=== PATIENT | female | born 1985 | race Caucasian/White ===

== ENCOUNTER 2016-12-17 09:38 | Emergency (ER) | payer OTHER ==
--- NOTE | 2016-12-17 11:46 | ED CLINICAL REPORT ---
Clinical Report - Physicians/Mid Levels Formerly [facility] [address] [place] [address] 12/17/2016 9:38 Patient: KARYN AVALOS Time Seen: 09:46; initial patient contact. Arrived- By private vehicle. Historian- patient. HISTORY OF PRESENT ILLNESS Chief Complaint: ABDOMINAL PAIN. At its maximum, severity described as moderate. When seen in the E.D., severity described as moderate. Modifying factors. Not worsened by anything. Not relieved by anything. No radiation. It is described as located in the right lower quadrant and in the pelvic area. This started yesterday. The patient has had nausea, loss of appetite and vomiting. No diarrhea. Similar symptoms previously: Several times. Recent medical care: The patient was seen recently at another facility in the emergency department. REVIEW OF SYSTEMS No constipation, pain with urination, fever or chills. She has had difficulty with urination. The patient has had urinary frequency. All systems otherwise negative, except as recorded above. PAST HISTORY Vomiting. Abrasion(s). Hemoptysis. Contusion. Substance Abuse. Chest Wall Pain. Otitis Externa. Otitis Media. Back Pain. Muscle Spasm. Myofascial Strain. Cardiovascular Risk Factors. Costochondritis. Atypical Chest Pain. Pelvic Pain. Anal Fissure. Hematuria. Constipation. Chronic Abdominal Pain. Dental Caries. Dyspnea. Bronchitis. Ovarian Cyst. . Anxiety Reaction. Fall. Sprain. Gastroenteritis. Tension-Type Headache. SURGERIES: Dilatation & Curettage. Hysterectomy. Tubal Ligation. SOCIAL HISTORY Current every day smoker. History of drug use: marijuana. No alcohol use. ADDITIONAL NOTES The nursing notes have been reviewed with agreement regarding the chief complaint, PMH and patient medications and allergies. PHYSICAL EXAM Vital Signs: 12/17/2016 09:48 BP: 113/68. HR: 84. RR: 12. O2 saturation: 100%. Temp: 98.2 F. Pain level now: 6/10. Have been reviewed as normal. Appearance: Alert. Oriented X3. No acute distress. Eyes: Eyes normal inspection. ENT: Dry mucous membranes present. CVS: Normal heart rate and rhythm. Heart sounds normal. Respiratory: No respiratory distress. Breath sounds normal. Abdomen: Soft. Mild tenderness in the right side of the abdomen. No guarding, rebound tenderness or Blair's, obturator or psoas sign present. Bowel sounds normal. No organomegaly. No mass. Back: Normal inspection. No CVA tenderness. Skin: Normal skin color. No rash. Extremities: No lower extremity edema. Neuro: Oriented X 3. LABS, X-RAYS, AND EKG Laboratory Tests: UA-Culture if indicated: (KARIN: 12/17/2016 09:50) ( [facility] 12/17/2016 10:16) Final results Test Result Flag Units (Reference) URINE COLOR YELLOW URINE APPEARANCE CLEAR URINE GLUCOSE NEGATIVE (NEGATIVE) URINE BILIRUBIN NEGATIVE (NEGATIVE) URINE KETONE NEGATIVE (NEGATIVE) URINE SPECIFIC GRAVITY <= 1.005 L (1.010-1.030) URINE PH 6.0 (5.0-8.0) URINE PROTEIN NEGATIVE (NEGATIVE) URINE UROBILINOGEN 0.2 EU/dL (0.2-1.0) URINE NITRITE NEGATIVE (NEGATIVE) URINE BLOOD NEGATIVE (NEGATIVE) URINE LEUK ESTERASE NEGATIVE (NEGATIVE) URINE RBC RARE rbc/hpf (0-1) URINE WBC NONE SEEN wbc/hpf (0-1) URINE EPITHELIAL CELLS RARE EPI/hpf (0-5) URINE BACTERIA NONE SEEN (NONE SEEN) URINE COMMENT CULT NOT INDICATED URINE CULTURES ARE SET-UP BASED ON THE FOLLOWING CRITERIA:POSITIVE NITRITEPOSITIVE LEUKOCYTE ESTERASEGREATER THAN 10 WHITE BLOOD CELLSMODERATE (2+) OR GREATER BACTERIA Urine: (KARIN: 12/17/2016 09:50) ( [facility] 12/17/2016 10:19) Final results Test Result Flag Units (Reference) URINE NEGATIVE CBC w Diff: (KARIN: 12/17/2016 10:32) ( [facility] 12/17/2016 10:53) Final results Test Result Flag Units (Reference) WHITE BLOOD COUNT 6.6 K/uL (4.5-11.5) RED BLOOD COUNT 4.55 M/uL (4.00-5.20) HEMOGLOBIN 13.7 gm/dL (12.0-16.0) HEMATOCRIT 40.9 % (36.0-46.0) MEAN CELL VOLUME 90 fL (80-100) MEAN CORPUSCULAR HGB 30 pg (26-34) MEAN CORPUSCULAR HGB CONC 34 g/dL (31-37) RED CELL DISTRIBUTION WIDTH 12.9 % (11.6-14.8) PLATELET COUNT 183 K/uL (150-400) NEUTROPHIL % 68.3 % (50-75) LYMPH % 21.2 L % (25-40) MONO % 8.6 % (3-14) EOSINOPHIL % 1.7 % (0-4) BASOPHIL % 0.2 % (0-2) CMP: (KARIN: 12/17/2016 10:32) ( MsgRcvd 12/17/2016 10:54) Final results Test Result Flag Units (Reference) GLUCOSE 97 mg/dL (70-110) BUN 11 mg/dL (7-18) CREATININE 0.7 mg/dL (0.6-1.3) Estimated GFR >60 mL/min Estimated GFR- >60 mL/min Note: Persistent reduction over 3 months in eGFR<60 mL/min/1.73 m2 defines CKD. Patients with eGFR values>=60 mL/min/1.73 m2 may also have CKD if evidence ofpersistent proteinuria. Additional information may be foundat www.kidney.org. SODIUM 141 mmol/L (136-145) POTASSIUM 3.8 mmol/L (3.5-5.1) CHLORIDE 107 mmol/L (98-107) CARBON DIOXIDE 23 mmol/L (21-32) CALCIUM 8.3 L mg/dL (8.5-10.1) TOTAL PROTEIN 6.6 g/dL (6.4-8.2) ALBUMIN 3.6 g/dL (3.3-5.0) BILIRUBIN, TOTAL 0.3 mg/dL (0.0-1.0) ALKALINE PHOSPHATASE 62 U/L (46-116) AST (SGOT) 21 U/L (15-37) ALT (SGPT) 20 U/L (12-78) LIPASE 117 U/L (73-393) AMYLASE 53 U/L (25-115) . PROGRESS AND PROCEDURES Course of Care: 11:45 12/17/16. Normal lab w/u. Chronic complaints and has been told in the past likely adhesions. Has undergone multiple CT scans, all neg. Has not been evaluated by a surgeon, will refer. Disposition: Discharged home in good and improved condition. Condition: good. CLINICAL IMPRESSION Chronic generalized abdominal pain of unknown cause. INSTRUCTIONS Your Current Medications: CONTINUE TAKING THE FOLLOWING MEDICATIONS: Clindamycin HCl Oral. Prescription Medications: Hydrocodone/APAP 5mg / 325mg: take 1 orally every 6 hours as needed for pain. Dispense ten (10). No refill. Zofran (orally disintegrating tablets) 4 mg: take 1 orally every 6 hours as needed for nausea and vomiting. Dispense ten (10). No refill. Substitution is permissible. Follow-up: Screening today revealed the patient's blood pressure to be in the normal range. Follow-up with: Franklin Subramanian MD, General Surgeon, , [facility], [address] [place] [address] Follow up in about two days. Call for an appointment. (Electronically signed by Nigel Cordero Dr. 12/17/2016 11:48)
--- NOTE | 2016-12-17 11:46 | ED NURSING NOTES ---
Clinical Report - Nurses [facility] [address] [place] [address] 12/17/2016 9:38 Patient: KARYN AVALOS TRIAGE Triage time 09:48. Acuity: LEVEL 3. Chief Complaint: PELVIC PAIN and PAINFUL URINATION. 09:49 12/17/16. 09:48 12/17/16. Alert. No acute distress. ( Pt seen recently at [facility] (yesterday) for abd pain. Pt states she has chronic abd pain.). --09:52 Bola Ford R.N. 09:48 12/17/16. BP: 113/68. HR: 84. RR: 12. O2 saturation: 100% on room air. Temp: 98.2 F. Pain level now: 03/16. --09:52 Bola Ford R.N. Weight: 65.7 kg stated. Height/Length: 66 inches Per Patient. BMI: 23.4. --09:49 Bola Ford R.N. Medications Clindamycin HCl Oral. --09:52 Bola Ford R.N. Medication/allergy information source: the patient. --09:52 Bola Ford R.N. Allergies Penicillins.(rash) Vicodin. --09:52 Bola Ford R.N. History Arrived by private vehicle. Historian: patient. Accompanied by family. 09:49 12/17/16. ( 5 years ago). 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 PAST MEDICAL HX: The patient has had a hysterectomy. SOCIAL HX: Current every day light tobacco smoker (cigarette)- less than 1/2 a pack per day. History of drug use: marijuana. Recently used drugs yesterday. No alcohol use. No infectious disease exposure. FALL RISK ASSESSMENT: Fall risk assessment completed. No fall risk identified. NUTRITIONAL RISK ASSESSMENT: The nutritional risk assessment revealed no deficiencies. FUNCTIONAL ASSESSMENT: Functional assessment: no impairments noted. LEARNING NEEDS ASSESSMENT: The learning needs assessment revealed no barriers. SKIN INTEGRITY ASSESSMENT: Skin integrity risk assessment completed. No skin integrity risk identified. --09:52 Bola Ford R.N. PROBLEMS: Vomiting. Abrasion(s). Hemoptysis. Contusion. Substance Abuse. Chest Wall Pain. Otitis Externa. Otitis Media. Back Pain. Muscle Spasm. Myofascial Strain. Cardiovascular Risk Factors. Costochondritis. Atypical Chest Pain. Pelvic Pain. Anal Fissure. Hematuria. Constipation. Abdominal Pain. Dental Caries. Dyspnea. Bronchitis. Ovarian Cyst. . Anxiety Reaction. Fall. Sprain. Tetanus Status. Immunizations. Gastroenteritis. Tension-Type Headache. LNMP - Last Normal Menstrual Period. --09:52 Bola Ford R.N. ADDITIONAL SURGERIES: Dilatation & Curettage. Hysterectomy. Tubal Ligation. --09:52 Bola Ford R.N. Assessment 09:49 12/17/16. --09:52 Bola Ford R.N. Interventions 09:48 12/17/16. 09:49 12/17/16. ID and allergy band on patient. To treatment room. --09:52 Bola Ford R.N. PHYSICAL ASSESSMENT 09:53 12/17/16. GENERAL / NEURO / PSYCH: Alert. Oriented X 4. RESPIRATORY: Respirations not labored. CVS: Capillary refill less than 2 seconds. GI / : Last BM was MOPPER. SKIN: Skin is warm and dry. --09:53 Bola Ford R.N. NURSING PROGRESS NOTES 09:53 12/17/16. The plan of care for this patient has been created. Patient gowned. Head of bed elevated. Reassurance given. Two patient identifiers checked. Call light placed in reach. Side rails up x 2. Bed placed in lowest position. Brakes of bed on. Brakes of chair on. --09:53 Bola Ford R.N. 09:53 12/17/16. Patient ready for evaluation- chart flagged and notification provided. --09:53 Bola Ford R.N. 09:54 12/17/16. Patient ID band checked for patient name and birthdate urine collected with return of yellow-colored urine; sample sent to lab for urinalysis and culture. Specimen labeled in the presence of the patient. --09:54 Bola Ford R.N. 10:12/17/16. Care transferred and report given (Jina MORENO). --10: Bola Ford R.N. 10:19 12/17/2016 Site #1 started via IV in the right antecubital space with an 20g angiocath; one attempt. Blood drawn: rainbow set. Labeled in the presence of the patient. --10:29 Jina Covington R.N. 10:12/17/2016 Started bag #1 1000 mL IV Fluids IV NS (Saline); at 1000 mL/hr over 1 hour(s) via site #1 via dial-a-flow. Allergies verified and confirmed 5 rights. IV patency established. IV site checked: no pain, redness, or swelling. IV flushed thoroughly pre- and post-medication administration. --10: Jina Covington R.N. 10:12/17/2016 Toradol IVP 30 mg given over 1 minute(s) via site #1. Allergies verified and confirmed 5 rights. IV patency established. IV site checked: no pain, redness, or swelling. IV flushed thoroughly pre- and post-medication administration. IVP given by RN. --10: Jina Covington R.N. 10:12/17/2016 Zofran (Ondansetron HCl) IVP 4 mg given over 2 minute(s) via site #1. Allergies verified and confirmed 5 rights. IV patency established. IV site checked: no pain, redness, or swelling. IV flushed thoroughly pre- and post-medication administration. IVP given by RN. --10:29 Jina Covington R.N. Patient ID band checked for patient name, birthdate and medical record number: patient confirmed. Blood samples drawn by nurse per protocol ; labeled in presence of the patient and sent to lab. Reassurance given. Two patient identifiers checked. Call light placed in reach. --10:30 Jina Covington R.N. 11:07 12/17/16. BP: 102/53 (regular adult cuff) taken on the left arm, via an automated monitor, while lying. HR: 87 (regular). RR: 15. O2 saturation: 100% on room air. Pain level now: 11/16. --11:08 Jina Covington R.N. Reassurance given. Reassessment after fluids administered. She has had no adverse reaction. Overall patient status is improved- she states feels better. --11: Jina Covington R.N. 11:12/17/2016 IV Fluids IV NS Discontinued: bag #1 completed. Total amount infused: 1000 mL. IV patency established. IV site checked: no pain, redness, or swelling. IV flushed thoroughly. --11: Jina Covington R.N. 11:12/17/2016 Toradol IVP Response: no adverse reaction symptoms have improved the patient feels better. --11: Jina Covington R.N. 11:12/17/2016 Zofran IVP Response: no adverse reaction pain is gone now. Symptoms have improved the patient feels better. --11: Jina Covington R.N. DISPOSITION / DISCHARGE 11:12/17/2016 Site #1 removed upon discharge. Catheter intact. Manual pressure and bandaid applied. --11:55 Jina Covington R.N. Departure time: 1159 PM. Condition at departure: improved and stable. The goals identified in the patient's plan of care were met. No learning barriers present. Discharge instructions provided and reviewed with the patient. Reviewed medication(s) side effects, precautions, dosing and course information. Prescription(s) given to the patient (Vicodin and Zofran). Reviewed referral to a surgeon for followup. Patient verbalized understanding. Written instructions provided in Bulgarian. ( All concerns addressed to patients satisfaction). The patient was discharged by the physician. She was discharged home and unaccompanied at time of discharge. She left the Emergency Department ambulatory and via private vehicle. Patient driving. FALL RISK ASSESSMENT: Fall risk assessment completed. No fall risk identified. GRICEL COMA SCORE: Gricel Coma Scale: 15- eyes open spontaneously (4); best verbal response- oriented x 4 (5); best motor response- obeys commands (6). --11:57 Jina Covington R.N. 11:55 12/17/16. BP: 101/59. HR: 87. RR: 16. O2 saturation: 100%. Temp: 98.1 F (oral). Pain level now: 11/16. --11:57 Jina Covington R.N. Locked/Released at 12/17/2016 11:58 by Jina Covington R.N.
--- NOTE | 2016-12-17 11:46 | ED NURSING NOTES ---
Clinical Report - Nurses [facility] [address] [place] [address] 12/17/2016 9:38 Patient: KARYN AVALOS TRIAGE Triage time 09:48. Acuity: LEVEL 3. Chief Complaint: PELVIC PAIN and PAINFUL URINATION. 09:49 12/17/16. 09:48 12/17/16. Alert. No acute distress. ( Pt seen recently at [facility] (yesterday) for abd pain. Pt states she has chronic abd pain.). --09:52 Bola Ford R.N. 09:48 12/17/16. BP: 113/68. HR: 84. RR: 12. O2 saturation: 100% on room air. Temp: 98.2 F. Pain level now: 03/16. --09:52 Bola Ford R.N. Weight: 65.7 kg stated. Height/Length: 66 inches Per Patient. BMI: 23.4. --09:49 Bola Ford R.N. Medications Clindamycin HCl Oral. --09:52 Bola Ford R.N. Medication/allergy information source: the patient. --09:52 Bola Ford R.N. Allergies Penicillins.(rash) Vicodin. --09:52 Bola Ford R.N. History Arrived by private vehicle. Historian: patient. Accompanied by family. 09:49 12/17/16. ( 5 years ago). 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 PAST MEDICAL HX: The patient has had a hysterectomy. SOCIAL HX: Current every day light tobacco smoker (cigarette)- less than 1/2 a pack per day. History of drug use: marijuana. Recently used drugs yesterday. No alcohol use. No infectious disease exposure. FALL RISK ASSESSMENT: Fall risk assessment completed. No fall risk identified. NUTRITIONAL RISK ASSESSMENT: The nutritional risk assessment revealed no deficiencies. FUNCTIONAL ASSESSMENT: Functional assessment: no impairments noted. LEARNING NEEDS ASSESSMENT: The learning needs assessment revealed no barriers. SKIN INTEGRITY ASSESSMENT: Skin integrity risk assessment completed. No skin integrity risk identified. --09:52 Bola Ford R.N. PROBLEMS: Vomiting. Abrasion(s). Hemoptysis. Contusion. Substance Abuse. Chest Wall Pain. Otitis Externa. Otitis Media. Back Pain. Muscle Spasm. Myofascial Strain. Cardiovascular Risk Factors. Costochondritis. Atypical Chest Pain. Pelvic Pain. Anal Fissure. Hematuria. Constipation. Abdominal Pain. Dental Caries. Dyspnea. Bronchitis. Ovarian Cyst. . Anxiety Reaction. Fall. Sprain. Tetanus Status. Immunizations. Gastroenteritis. Tension-Type Headache. LNMP - Last Normal Menstrual Period. --09:52 Bola Ford R.N. ADDITIONAL SURGERIES: Dilatation & Curettage. Hysterectomy. Tubal Ligation. --09:52 Bola Ford R.N. Assessment 09:49 12/17/16. --09:52 Bola Ford R.N. Interventions 09:48 12/17/16. 09:49 12/17/16. ID and allergy band on patient. To treatment room. --09:52 Bola Ford R.N. PHYSICAL ASSESSMENT 09:53 12/17/16. GENERAL / NEURO / PSYCH: Alert. Oriented X 4. RESPIRATORY: Respirations not labored. CVS: Capillary refill less than 2 seconds. 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 SKIN: Skin is warm and dry. --09:53 Bola Ford R.N. NURSING PROGRESS NOTES 09:53 12/17/16. The plan of care for this patient has been created. Patient gowned. Head of bed elevated. Reassurance given. Two patient identifiers checked. Call light placed in reach. Side rails up x 2. Bed placed in lowest position. Brakes of bed on. Brakes of chair on. --09:53 Bola Ford R.N. 09:53 12/17/16. Patient ready for evaluation- chart flagged and notification provided. --09:53 Bola Ford R.N. 09:54 12/17/16. Patient ID band checked for patient name and birthdate urine collected with return of yellow-colored urine; sample sent to lab for urinalysis and culture. Specimen labeled in the presence of the patient. --09:54 Bola Ford R.N. 10:12/17/16. Care transferred and report given (Jina MORENO). --10: Bola Ford R.N. 10:19 12/17/2016 Site #1 started via IV in the right antecubital space with an 20g angiocath; one attempt. Blood drawn: rainbow set. Labeled in the presence of the patient. --10:29 Jina Covington R.N. 10:12/17/2016 Started bag #1 1000 mL IV Fluids IV NS (Saline); at 1000 mL/hr over 1 hour(s) via site #1 via dial-a-flow. Allergies verified and confirmed 5 rights. IV patency established. IV site checked: no pain, redness, or swelling. IV flushed thoroughly pre- and post-medication administration. --10: Jina Covington R.N. 10:12/17/2016 Toradol IVP 30 mg given over 1 minute(s) via site #1. Allergies verified and confirmed 5 rights. IV patency established. IV site checked: no pain, redness, or swelling. IV flushed thoroughly pre- and post-medication administration. IVP given by RN. --10: Jina Covington R.N. 10:12/17/2016 Zofran (Ondansetron HCl) IVP 4 mg given over 2 minute(s) via site #1. Allergies verified and confirmed 5 rights. IV patency established. IV site checked: no pain, redness, or swelling. IV flushed thoroughly pre- and post-medication administration. IVP given by RN. --10:29 Jina Covington R.N. Patient ID band checked for patient name, birthdate and medical record number: patient confirmed. Blood samples drawn by nurse per protocol ; labeled in presence of the patient and sent to lab. Reassurance given. Two patient identifiers checked. Call light placed in reach. --10:30 Jina Covington R.N. 11:07 12/17/16. BP: 102/53 (regular adult cuff) taken on the left arm, via an automated monitor, while lying. HR: 87 (regular). RR: 15. O2 saturation: 100% on room air. Pain level now: 11/16. --11:08 Jina Covington R.N. Reassurance given. Reassessment after fluids administered. She has had no adverse reaction. Overall patient status is improved- she states feels better. --11: Jina Covington R.N. 11:12/17/2016 IV Fluids IV NS Discontinued: bag #1 completed. Total amount infused: 1000 mL. IV patency established. IV site checked: no pain, redness, or swelling. IV flushed thoroughly. --11: Jina Covington R.N. 11:12/17/2016 Toradol IVP Response: no adverse reaction symptoms have improved the patient feels better. --11: Jina Covington R.N. 11:12/17/2016 Zofran IVP Response: no adverse reaction pain is gone now. Symptoms have improved the patient feels better. --11: Jina Covington R.N. DISPOSITION / DISCHARGE 11:12/17/2016 Site #1 removed upon discharge. Catheter intact. Manual pressure and bandaid applied. --11:55 Jina Covington R.N. Departure time: 1159 PM. Condition at departure: improved and stable. The goals identified in the patient's plan of care were met. No learning barriers present. Discharge instructions provided and reviewed with the patient. Reviewed medication(s) side effects, precautions, dosing and course information. Prescription(s) given to the patient (Vicodin and Zofran). Reviewed referral to a surgeon for followup. Patient verbalized understanding. Written instructions provided in Tongan. ( All concerns addressed to patients satisfaction). The patient was discharged by the physician. She was discharged home and unaccompanied at time of discharge. She left the Emergency Department ambulatory and via private vehicle. Patient driving. FALL RISK ASSESSMENT: Fall risk assessment completed. No fall risk identified. GRICEL COMA SCORE: Gricel Coma Scale: 15- eyes open spontaneously (4); best verbal response- oriented x 4 (5); best motor response- obeys commands (6). --11:57 Jina Covington R.N. 11:55 12/17/16. BP: 101/59. HR: 87. RR: 16. O2 saturation: 100%. Temp: 98.1 F (oral). Pain level now: 11/16. --11:57 Jina Covington R.N. Locked/Released at 12/17/2016 11:58 by Jina Covington R.N.
--- NOTE | 2016-12-17 11:46 | ED CLINICAL REPORT ---
Clinical Report - Physicians/Mid Levels [facility] [address] [place] [address] 12/17/2016 9:38 Patient: KARYN AVALOS Time Seen: 09:46; initial patient contact. Arrived- By private vehicle. Historian- patient. HISTORY OF PRESENT ILLNESS Chief Complaint: ABDOMINAL PAIN. At its maximum, severity described as moderate. When seen in the E.D., severity described as moderate. Modifying factors. Not worsened by anything. Not relieved by anything. No radiation. It is described as located in the right lower quadrant and in the pelvic area. This started yesterday. The patient has had nausea, loss of appetite and vomiting. No diarrhea. Similar symptoms previously: Several times. Recent medical care: The patient was seen recently at another facility in the emergency department. REVIEW OF SYSTEMS No constipation, pain with urination, fever or chills. She has had difficulty with urination. The patient has had urinary frequency. All systems otherwise negative, except as recorded above. PAST HISTORY Vomiting. Abrasion(s). Hemoptysis. Contusion. Substance Abuse. Chest Wall Pain. Otitis Externa. Otitis Media. Back Pain. Muscle Spasm. Myofascial Strain. Cardiovascular Risk Factors. Costochondritis. Atypical Chest Pain. Pelvic Pain. Anal Fissure. Hematuria. Constipation. Chronic Abdominal Pain. Dental Caries. Dyspnea. Bronchitis. Ovarian Cyst. . Anxiety Reaction. Fall. Sprain. Gastroenteritis. Tension-Type Headache. SURGERIES: Dilatation & Curettage. Hysterectomy. Tubal Ligation. SOCIAL HISTORY Current every day smoker. History of drug use: marijuana. No alcohol use. ADDITIONAL NOTES The nursing notes have been reviewed with agreement regarding the chief complaint, PMH and patient medications and allergies. PHYSICAL EXAM Vital Signs: 12/17/2016 09:48 BP: 113/68. HR: 84. RR: 12. O2 saturation: 100%. Temp: 98.2 F. Pain level now: 6/10. Have been reviewed as normal. Appearance: Alert. Oriented X3. No acute distress. Eyes: Eyes normal inspection. ENT: Dry mucous membranes present. CVS: Normal heart rate and rhythm. Heart sounds normal. Respiratory: No respiratory distress. Breath sounds normal. Abdomen: Soft. Mild tenderness in the right side of the abdomen. No guarding, rebound tenderness or Blair's, obturator or psoas sign present. Bowel sounds normal. No organomegaly. No mass. Back: Normal inspection. No CVA tenderness. Skin: Normal skin color. No rash. Extremities: No lower extremity edema. Neuro: Oriented X 3. LABS, X-RAYS, AND EKG Laboratory Tests: UA-Culture if indicated: (KARIN: 12/17/2016 09:50) ( [facility] 12/17/2016 10:16) Final results Test Result Flag Units (Reference) URINE COLOR YELLOW URINE APPEARANCE CLEAR URINE GLUCOSE NEGATIVE (NEGATIVE) URINE BILIRUBIN NEGATIVE (NEGATIVE) URINE KETONE NEGATIVE (NEGATIVE) URINE SPECIFIC GRAVITY <= 1.005 L (1.010-1.030) URINE PH 6.0 (5.0-8.0) URINE PROTEIN NEGATIVE (NEGATIVE) URINE UROBILINOGEN 0.2 EU/dL (0.2-1.0) URINE NITRITE NEGATIVE (NEGATIVE) URINE BLOOD NEGATIVE (NEGATIVE) URINE LEUK ESTERASE NEGATIVE (NEGATIVE) URINE RBC RARE rbc/hpf (0-1) URINE WBC NONE SEEN wbc/hpf (0-1) URINE EPITHELIAL CELLS RARE EPI/hpf (0-5) URINE BACTERIA NONE SEEN (NONE SEEN) URINE COMMENT CULT NOT INDICATED URINE CULTURES ARE SET-UP BASED ON THE FOLLOWING CRITERIA:POSITIVE NITRITEPOSITIVE LEUKOCYTE ESTERASEGREATER THAN 10 WHITE BLOOD CELLSMODERATE (2+) OR GREATER BACTERIA Urine: (KARIN: 12/17/2016 09:50) ( [facility] 12/17/2016 10:19) Final results Test Result Flag Units (Reference) URINE NEGATIVE CBC w Diff: (KARIN: 12/17/2016 10:32) ( [facility] 12/17/2016 10:53) Final results Test Result Flag Units (Reference) WHITE BLOOD COUNT 6.6 K/uL (4.5-11.5) RED BLOOD COUNT 4.55 M/uL (4.00-5.20) HEMOGLOBIN 13.7 gm/dL (12.0-16.0) HEMATOCRIT 40.9 % (36.0-46.0) MEAN CELL VOLUME 90 fL (80-100) MEAN CORPUSCULAR HGB 30 pg (26-34) MEAN CORPUSCULAR HGB CONC 34 g/dL (31-37) RED CELL DISTRIBUTION WIDTH 12.9 % (11.6-14.8) PLATELET COUNT 183 K/uL (150-400) NEUTROPHIL % 68.3 % (50-75) LYMPH % 21.2 L % (25-40) MONO % 8.6 % (3-14) EOSINOPHIL % 1.7 % (0-4) BASOPHIL % 0.2 % (0-2) CMP: (KARIN: 12/17/2016 10:32) ( MsgRcvd 12/17/2016 10:54) Final results Test Result Flag Units (Reference) GLUCOSE 97 mg/dL (70-110) BUN 11 mg/dL (7-18) CREATININE 0.7 mg/dL (0.6-1.3) Estimated GFR >60 mL/min Estimated GFR- >60 mL/min Note: Persistent reduction over 3 months in eGFR<60 mL/min/1.73 m2 defines CKD. Patients with eGFR values>=60 mL/min/1.73 m2 may also have CKD if evidence ofpersistent proteinuria. Additional information may be foundat www.kidney.org. SODIUM 141 mmol/L (136-145) POTASSIUM 3.8 mmol/L (3.5-5.1) CHLORIDE 107 mmol/L (98-107) CARBON DIOXIDE 23 mmol/L (21-32) CALCIUM 8.3 L mg/dL (8.5-10.1) TOTAL PROTEIN 6.6 g/dL (6.4-8.2) ALBUMIN 3.6 g/dL (3.3-5.0) BILIRUBIN, TOTAL 0.3 mg/dL (0.0-1.0) ALKALINE PHOSPHATASE 62 U/L (46-116) AST (SGOT) 21 U/L (15-37) ALT (SGPT) 20 U/L (12-78) LIPASE 117 U/L (73-393) AMYLASE 53 U/L (25-115) . PROGRESS AND PROCEDURES Course of Care: 11:45 12/17/16. Normal lab w/u. Chronic complaints and has been told in the past likely adhesions. Has undergone multiple CT scans, all neg. Has not been evaluated by a surgeon, will refer. Disposition: Discharged home in good and improved condition. Condition: good. CLINICAL IMPRESSION Chronic generalized abdominal pain of unknown cause. INSTRUCTIONS Your Current Medications: CONTINUE TAKING THE FOLLOWING MEDICATIONS: Clindamycin HCl Oral. Prescription Medications: Hydrocodone/APAP 5mg / 325mg: take 1 orally every 6 hours as needed for pain. Dispense ten (10). No refill. Zofran (orally disintegrating tablets) 4 mg: take 1 orally every 6 hours as needed for nausea and vomiting. Dispense ten (10). No refill. Substitution is permissible. Follow-up: Screening today revealed the patient's blood pressure to be in the normal range. Follow-up with: Franklin Subramanian MD, General Surgeon, , [facility], [address] [place] [address] Follow up in about two days. Call for an appointment. (Electronically signed by Nigel Cordero Dr. 12/17/2016 11:48)
--- NOTE | 2016-12-17 11:46 | ED ORDER SUMMARY ---
..... Patient: KARYN AVALOS OrderSheet [facility] VisitID: [id number] [address] [place] [address] 31y, F Registration Date/Time: 12/17/2016 ORDER SHEET Weight: 65.7 kg (stated) Allergies: Penicillins, Vicodin GENERAL ORDERS: UA-Culture if indicated Urgent (09:53 12/17/2016 Francisco Greenfield.NRamon per protocol) (Ack 10:04 Tobias) (10:14 Bill R.N.) CBC w Diff Urgent (10:12/17/2016 Juan David Vaughn) (Ack 10:08 Tobias) (10:14 Bill R.N.) CMP Urgent (10:12/17/2016 Juan David Vaughn) (Ack 10:08 Tobias) (10:14 Bill R.N.) Amylase Urgent (10:12/17/2016 Juan David Vaughn) (Ack 10:08 Tobias) (10:14 Bill R.N.) Lipase Urgent (10:12/17/2016 Juan David Vaughn) (Ack 10:08 Tobias) (10:14 Bill R.N.) Urine Urgent (10:12/17/2016 Juan David Vaughn) (Ack 10:08 Tobias) (10:14 Bill R.N.) MEDICATION ORDERS: IV FLUIDS: IV NS : initial bolus none -, then 1000 mL/hr for X1 (NOW) (10:12/17/2016 Juan David Vaughn) (10:29 Bill R.N.) Toradol IV 30 mg (NOW) (10:12/17/2016 Juan David Vaughn) (10:29 Bill R.N.) Zofran IV 4 mg (NOW) (10:12/17/2016 Juan David Vaughn) (10:29 Bill R.N.) ORDER SHEET NOTES: [Electronically signed by Nigel Cordero Dr. (11:48 12/17/2016)] [Electronically signed by Jina Covington R.N. (11:58 12/17/2016)] [Electronically locked/signed by Jina Covington R.N. (11:58 12/17/2016)]
--- NOTE | 2016-12-17 11:46 | ED ORDER SUMMARY ---
..... Patient: KARYN AVALOS OrderSheet [facility] VisitID: [id number] [address] [place] [address] 31y, F Registration Date/Time: 12/17/2016 ORDER SHEET Weight: 65.7 kg (stated) Allergies: Penicillins, Vicodin GENERAL ORDERS: UA-Culture if indicated Urgent (09:53 12/17/2016 Francisco Greenfield.NRamon per protocol) (Ack 10:04 Tobias) (10:14 Bill R.N.) CBC w Diff Urgent (10:12/17/2016 Juan David Vaughn) (Ack 10:08 Tobias) (10:14 Bill R.N.) CMP Urgent (10:12/17/2016 Juan David Vaughn) (Ack 10:08 Tobias) (10:14 Bill R.N.) Amylase Urgent (10:12/17/2016 Juan David Vaughn) (Ack 10:08 Tobias) (10:14 Bill R.N.) Lipase Urgent (10:12/17/2016 Juan David Vaughn) (Ack 10:08 Tobias) (10:14 Bill R.N.) Urine Urgent (10:12/17/2016 Juan David Vaughn) (Ack 10:08 Tobias) (10:14 Bill R.N.) MEDICATION ORDERS: IV FLUIDS: IV NS : initial bolus none -, then 1000 mL/hr for X1 (NOW) (10:12/17/2016 Juan David Vaughn) (10:29 Bill R.N.) Toradol IV 30 mg (NOW) (10:12/17/2016 Juan David Vaughn) (10:29 Bill R.N.) Zofran IV 4 mg (NOW) (10:12/17/2016 Juan David Vaughn) (10:29 Bill R.N.) ORDER SHEET NOTES: [Electronically signed by Nigel Cordero Dr. (11:48 12/17/2016)] [Electronically signed by Jina Covington R.N. (11:58 12/17/2016)] [Electronically locked/signed by Jina Covington R.N. (11:58 12/17/2016)]
--- NOTE | 2016-12-17 11:58 | ED DISCHARGE INSTRUCTIONS ---
Patient: KARYN AVALOS General Instructions [facility] VisitID: [id number] [address] [place], [place] [id number] 31y, F Registration Date/Time: 12/17/2016 Chronic generalized abdominal pain of unknown cause. INSTRUCTIONS Your Current Medications: CONTINUE TAKING THE FOLLOWING MEDICATIONS: Clindamycin HCl Oral. Prescription Medications: Hydrocodone/APAP 5mg / 325mg: take 1 orally every 6 hours as needed for pain. Dispense ten (10). No refill. Zofran (orally disintegrating tablets) 4 mg: take 1 orally every 6 hours as needed for nausea and vomiting. Dispense ten (10). No refill. Substitution is permissible. Follow-up: Screening today revealed the patient's blood pressure to be in the normal range. Follow-up with: Franklin Subramanian MD, General Surgeon, , [facility], [address] [place] [address] Follow up in about two days. Call for an appointment. ADDITIONAL INFORMATION Abdominal Pain, Unknown Cause (Female) The exact cause of your abdominal (stomach) pain is not certain. This does not mean that this is something to worry about, or the right tests were not done. Everyone likes to know the exact cause of the problem, but sometimes with abdominal pain, there is no clear-cut cause, and this could be a good thing. The good news is that your symptoms can be treated, and you will feel better. Your condition does not seem serious now; however, sometimes the signs of a serious problem may take more time to appear. For this reason,it is important for you to watch for any new symptoms, problems,or worsening of your condition. Over the next few days, the abdominal pain may come and go, or be continuous. Other common symptoms can include nausea and vomiting. Sometimes it can be difficult to tell if you feel nauseous, you may just feel bad and not associate that feeling with nausea. Constipation, diarrhea, and a fever may go along with the pain. The pain may continue even if treated correctly over the following days. Depending on how things go, sometimes the cause can become clear and may require further or different treatment. Additional evaluations, medications, or tests may be needed. Home care Your health care provider may prescribe medications for pain, symptoms, or an infection. Follow the health care provider's instructions for taking these medications. General care Rest until your next exam. No strenuous activities. Try to find positions that ease discomfort. A small pillow placed on the abdomen may help relieve pain. Something warm on your abdomen (such as a heating pad) may help, but be careful not to burn yourself. Diet Do not force yourself to eat, especially if having cramps, vomiting, or diarrhea. Water is important so you do not get dehydrated. Soup may also be good. Sports drinks may also help, especially if they are not too acidic. Make sure you don't drink sugary drinks as this can make things worse. Take liquids in small amounts. Do not guzzle them. Caffeine sometimes makes the pain and cramping worse. Avoid dairy products if you have vomiting or diarrhea. Don't eat large amounts at a time. Wait a few minutes between bites. Eat a diet low in fiber (called a low-residue diet). Foods allowed include refined breads, white rice, fruit and vegetable juices without pulp, tender meats. These foods will pass more easily through the intestine. Avoid whole-grain foods, whole fruits and vegetables, meats, seeds and nuts, fried or fatty foods, dairy, alcohol and spicy foods until your symptoms go away. Follow-up care Follow up with your health care provider as instructed, or if your pain does not begin to improve in the next 24 hours. When to seek medical care Seek prompt medical care if any of the following occur: Pain gets worse or moves to the right lower abdomen New or worsening vomiting or diarrhea Swelling of the abdomen Unable to pass stool for more than three days Fever of 100.4F (38C) or higher, or as directed by your healthcare provider. Blood in vomit or bowel movements (dark red or black color) Jaundice (yellow color of eyes and skin) Weakness, dizziness Chest, arm, back, neck or jaw pain Unexpected vaginal bleeding or missed period Call 911 Call emergency services if any of the following occur: Trouble breathing Confusion Fainting or loss of consciousness Rapid heart rate Seizure Hydrocodone Bitartrate, Acetaminophen Oral tablet What is this medicine? ACETAMINOPHEN; HYDROCODONE (a set a RIDDHI jordin fen; onur droe KOE done) is a pain reliever. It is used to treat mild to moderate pain. How should I use this medicine? Take this medicine by mouth. Swallow it with a full glass of water. Follow the directions on the prescription label. If the medicine upsets your stomach, take the medicine with food or milk. Do not take more than you are told to take. Talk to your catalyst impregnator regarding the use of this medicine in children. This medicine is not approved for use in children. What side effects may I notice from receiving this medicine? Side effects that you should report to your doctor or health lead caregiver as soon as possible: allergic reactions like skin rash, itching or hives, swelling of the face, lips, or tongue breathing problems confusion feeling faint or lightheaded, falls stomach pain yellowing of the eyes or skin Side effects that usually do not require medical attention (report to your doctor or health lead caregiver if they continue or are bothersome): nausea, vomiting stomach upset What may interact with this medicine? alcohol antihistamines isoniazid medicines for depression, anxiety, or psychotic disturbances medicines for sleep muscle relaxants naltrexone narcotic medicines (opiates) for pain phenobarbital ritonavir tramadol What if I miss a dose? If you miss a dose, take it as soon as you can. If it is almost time for your next dose, take only that dose. Do not take double or extra doses. Where should I keep my medicine? Keep out of the reach of children. This medicine can be abused. Keep your medicine in a safe place to protect it from theft. Do not share this medicine with anyone. Selling or giving away this medicine is dangerous and against the law. Store at room temperature between 15 and 30 degrees C (59 and 86 degrees F). Protect from light. Keep container tightly closed. Throw away any unused medicine after the expiration date. Discard unused medicine and used packaging carefully. Pets and children can be harmed if they find used or lost packages. What should I tell my health care provider before I take this medicine? They need to know if you have any of these conditions: brain tumor Crohn's disease, inflammatory bowel disease, or ulcerative colitis drink more than 3 alcohol-containing drinks per day drug abuse or addiction head injury heart or circulation problems kidney disease or problems going to the bathroom liver disease lung disease, asthma, or breathing problems an unusual or allergic reaction to acetaminophen, hydrocodone, other opioid analgesics, other medicines, foods, dyes, or preservatives or trying to get breast-feeding What should I watch for while using this medicine? Tell your doctor or health lead caregiver if your pain does not go away, if it gets worse, or if you have new or a different type of pain. You may develop tolerance to the medicine. Tolerance means that you will need a higher dose of the medicine for pain relief. Tolerance is normal and is expected if you take the medicine for a long time. Do not suddenly stop taking your medicine because you may develop a severe reaction. Your body becomes used to the medicine. This does NOT mean you are addicted. Addiction is a behavior related to getting and using a drug for a non-medical reason. If you have pain, you have a medical reason to take pain medicine. Your doctor will tell you how much medicine to take. If your doctor wants you to stop the medicine, the dose will be slowly lowered over time to avoid any side effects. You may get drowsy or dizzy when you first start taking the medicine or change doses. Do not drive, use machinery, or do anything that may be dangerous until you know how the medicine affects you. Stand or sit up slowly. There are different types of narcotic medicines (opiates) for pain. If you take more than one type at the same time, you may have more side effects. Give your health care provider a list of all medicines you use. Your doctor will tell you how much medicine to take. Do not take more medicine than directed. Call emergency for help if you have problems breathing. The medicine will cause constipation. Try to have a bowel movement at least every 2 to 3 days. If you do not have a bowel movement for 3 days, call your doctor or health lead caregiver. Too much acetaminophen can be very dangerous. Do not take Tylenol (acetaminophen) or medicines that contain acetaminophen with this medicine. Many non-prescription medicines contain acetaminophen. Always read the labels carefully. Ondansetron Oral disintegrating tablet What is this medicine? ONDANSETRON (on NORMA se eagle) is used to treat nausea and vomiting caused by chemotherapy. It is also used to prevent or treat nausea and vomiting after surgery. How should I use this medicine? These tablets are made to dissolve in the mouth. Do not try to push the tablet through the foil backing. With dry hands, peel away the foil backing and gently remove the tablet. Place the tablet in the mouth and allow it to dissolve, then swallow. While you may take these tablets with water, it is not necessary to do so. Talk to your catalyst impregnator regarding the use of this medicine in children. Special care may be needed. What side effects may I notice from receiving this medicine? Side effects that you should report to your doctor or health lead caregiver as soon as possible: allergic reactions like skin rash, itching or hives, swelling of the face, lips, or tongue breathing problems dizziness fast or irregular heartbeat feeling faint or lightheaded, falls fever and chills swelling of the hands and feet tightness in the chest Side effects that usually do not require medical attention (report to your doctor or health lead caregiver if they continue or are bothersome): constipation or diarrhea headache What may interact with this medicine? Do not take this medicine with any of the following medications: -apomorphine -cisapride -dofetilide -dronedarone -pimozide -thioridazine -ziprasidone This medicine may also interact with the following medications: -carbamazepine -phenytoin -rifampicin -tramadol -other medicines that prolong the QT interval (cause an abnormal heart rhythm) What if I miss a dose? If you miss a dose, take it as soon as you can. If it is almost time for your next dose, take only that dose. Do not take double or extra doses. Where should I keep my medicine? Keep out of the reach of children. Store between 2 and 30 degrees C (36 and 86 degrees F). Throw away any unused medicine after the expiration date. What should I tell my health care provider before I take this medicine? They need to know if you have any of these conditions: heart disease history of irregular heartbeat liver disease low levels of magnesium or potassium in the blood an unusual or allergic reaction to ondansetron, granisetron, other medicines, foods, dyes, or preservatives or trying to get breast-feeding What should I watch for while using this medicine? Check with your doctor or health lead caregiver as soon as you can if you have any sign of an allergic reaction. You have been given the following additional information: Abdominal Pain, Unknown Cause, (Female) Hydrocodone Bitartrate, Acetaminophen Oral tablet Ondansetron Oral disintegrating tablet (Electronically signed by Nigel Cordero Dr. 12/17/2016 11:48)
--- NOTE | 2016-12-17 11:58 | ED MAR SUMMARY ---
..... Medication Administration Record [facility] [address] [place] [address] Patient: KARYN AVALOS Visit ID: [id number] 31y, F Weight: 65.7 kg Height/Length: 66 in BMI: 23.4 ALLERGIES: Penicillins, Vicodin Start 10:12/17/2016 Jina Covington R.N., Stop 11:12/17/2016 Jina Covington R.N. Medication Administered: IV NS (SALINE), Dose: IV Fluids over 1 hour(s), Rate: 1000 mL/hr, Dispensed: 1000 mL bag, Site: #1 right AC. Medication Ordered: IV NS : initial bolus none -, then 1000 mL/hr for X1 (NOW). Given 10:12/17/2016 Jina Covington R.N. Medication Administered: TORADOL [IVP], Dose: 30 mg IVP over 1 minute(s), Site: #1 right AC. Medication Ordered: Toradol IV 30 mg (NOW). Given 10:12/17/2016 Jina Covington R.NRamon Medication Administered: ZOFRAN [IVP] (ONDANSETRON HCL), Dose: 4 mg IVP over 2 minute(s), Site: #1 right AC. Medication Ordered: Zofran IV 4 mg (NOW).
--- NOTE | 2016-12-17 11:58 | ED MED RECONCILIATION SUMMARY ---
Patient: KARYN AVALOS Medication Reconciliation Report [facility] VisitID: [id number] [address] [place] [address] 31y, F Registration Date/Time: 12/17/2016 Weight: 65.7 kg Height/Length: 66 in. BMI: 23.4 ALLERGIES: Penicillins, Vicodin The patient's Home Medications are listed below: CONTINUE TAKING THE FOLLOWING MEDICATIONS: Clindamycin HCl Oral The source(s) of the original Home Medication information: patient The following Medications were given to the patient in the Emergency Department: IV NS IV Fluids bolus 0, then 1000 mL/hr, administered: 12/17/2016 10:29:00 AM Toradol [IVP] IVP 30 mg, administered: 12/17/2016 10:29:00 AM Zofran [IVP] IVP 4 mg, administered: 12/17/2016 10:29:00 AM The following Medications were prescribed to the patient: Hydrocodone/APAP 5mg / 325mg: take 1 orally every 6 hours as needed for pain. Dispense ten (10). No refill. -- Nigel Cordero Dr. Zofran (orally disintegrating tablets) 4 mg: take 1 orally every 6 hours as needed for nausea and vomiting. Dispense ten (10). No refill. Substitution is permissible. -- Nigel Cordero Dr.
--- NOTE | 2016-12-17 11:58 | ED MED RECONCILIATION SUMMARY ---
Patient: KARYN AVALOS Medication Reconciliation Report Merged With [facility] VisitID: [id number] [address] [place] [address] 31y, F Registration Date/Time: 12/17/2016 Weight: 65.7 kg Height/Length: 66 in. BMI: 23.4 ALLERGIES: Penicillins, Vicodin The patient's Home Medications are listed below: CONTINUE TAKING THE FOLLOWING MEDICATIONS: Clindamycin HCl Oral The source(s) of the original Home Medication information: patient The following Medications were given to the patient in the Emergency Department: IV NS IV Fluids bolus 0, then 1000 mL/hr, administered: 12/17/2016 10:29:00 AM Toradol [IVP] IVP 30 mg, administered: 12/17/2016 10:29:00 AM Zofran [IVP] IVP 4 mg, administered: 12/17/2016 10:29:00 AM The following Medications were prescribed to the patient: Hydrocodone/APAP 5mg / 325mg: take 1 orally every 6 hours as needed for pain. Dispense ten (10). No refill. -- Nigel Cordero Dr. Zofran (orally disintegrating tablets) 4 mg: take 1 orally every 6 hours as needed for nausea and vomiting. Dispense ten (10). No refill. Substitution is permissible. -- Nigel Cordero Dr.
--- NOTE | 2016-12-17 11:58 | ED DISCHARGE INSTRUCTIONS ---
Patient: KARYN AVALOS General Instructions [facility] VisitID: [id number] [address] [place], [place] [id number] 31y, F Registration Date/Time: 12/17/2016 Chronic generalized abdominal pain of unknown cause. INSTRUCTIONS Your Current Medications: CONTINUE TAKING THE FOLLOWING MEDICATIONS: Clindamycin HCl Oral. Prescription Medications: Hydrocodone/APAP 5mg / 325mg: take 1 orally every 6 hours as needed for pain. Dispense ten (10). No refill. Zofran (orally disintegrating tablets) 4 mg: take 1 orally every 6 hours as needed for nausea and vomiting. Dispense ten (10). No refill. Substitution is permissible. Follow-up: Screening today revealed the patient's blood pressure to be in the normal range. Follow-up with: Franklin Subramanian MD, General Surgeon, , [facility], [address] [place] [address] Follow up in about two days. Call for an appointment. ADDITIONAL INFORMATION Abdominal Pain, Unknown Cause (Female) The exact cause of your abdominal (stomach) pain is not certain. This does not mean that this is something to worry about, or the right tests were not done. Everyone likes to know the exact cause of the problem, but sometimes with abdominal pain, there is no clear-cut cause, and this could be a good thing. The good news is that your symptoms can be treated, and you will feel better. Your condition does not seem serious now; however, sometimes the signs of a serious problem may take more time to appear. For this reason,it is important for you to watch for any new symptoms, problems,or worsening of your condition. Over the next few days, the abdominal pain may come and go, or be continuous. Other common symptoms can include nausea and vomiting. Sometimes it can be difficult to tell if you feel nauseous, you may just feel bad and not associate that feeling with nausea. Constipation, diarrhea, and a fever may go along with the pain. The pain may continue even if treated correctly over the following days. Depending on how things go, sometimes the cause can become clear and may require further or different treatment. Additional evaluations, medications, or tests may be needed. Home care Your health care provider may prescribe medications for pain, symptoms, or an infection. Follow the health care provider's instructions for taking these medications. General care Rest until your next exam. No strenuous activities. Try to find positions that ease discomfort. A small pillow placed on the abdomen may help relieve pain. Something warm on your abdomen (such as a heating pad) may help, but be careful not to burn yourself. Diet Do not force yourself to eat, especially if having cramps, vomiting, or diarrhea. Water is important so you do not get dehydrated. Soup may also be good. Sports drinks may also help, especially if they are not too acidic. Make sure you don't drink sugary drinks as this can make things worse. Take liquids in small amounts. Do not guzzle them. Caffeine sometimes makes the pain and cramping worse. Avoid dairy products if you have vomiting or diarrhea. Don't eat large amounts at a time. Wait a few minutes between bites. Eat a diet low in fiber (called a low-residue diet). Foods allowed include refined breads, white rice, fruit and vegetable juices without pulp, tender meats. These foods will pass more easily through the intestine. Avoid whole-grain foods, whole fruits and vegetables, meats, seeds and nuts, fried or fatty foods, dairy, alcohol and spicy foods until your symptoms go away. Follow-up care Follow up with your health care provider as instructed, or if your pain does not begin to improve in the next 24 hours. When to seek medical care Seek prompt medical care if any of the following occur: Pain gets worse or moves to the right lower abdomen New or worsening vomiting or diarrhea Swelling of the abdomen Unable to pass stool for more than three days Fever of 100.4F (38C) or higher, or as directed by your healthcare provider. Blood in vomit or bowel movements (dark red or black color) Jaundice (yellow color of eyes and skin) Weakness, dizziness Chest, arm, back, neck or jaw pain Unexpected vaginal bleeding or missed period Call 911 Call emergency services if any of the following occur: Trouble breathing Confusion Fainting or loss of consciousness Rapid heart rate Seizure Hydrocodone Bitartrate, Acetaminophen Oral tablet What is this medicine? ACETAMINOPHEN; HYDROCODONE (a set a RIDDHI jordin fen; onur droe KOE done) is a pain reliever. It is used to treat mild to moderate pain. How should I use this medicine? Take this medicine by mouth. Swallow it with a full glass of water. Follow the directions on the prescription label. If the medicine upsets your stomach, take the medicine with food or milk. Do not take more than you are told to take. Talk to your asphalt tamper regarding the use of this medicine in children. This medicine is not approved for use in children. What side effects may I notice from receiving this medicine? Side effects that you should report to your doctor or health day care home provider as soon as possible: allergic reactions like skin rash, itching or hives, swelling of the face, lips, or tongue breathing problems confusion feeling faint or lightheaded, falls stomach pain yellowing of the eyes or skin Side effects that usually do not require medical attention (report to your doctor or health day care home provider if they continue or are bothersome): nausea, vomiting stomach upset What may interact with this medicine? alcohol antihistamines isoniazid medicines for depression, anxiety, or psychotic disturbances medicines for sleep muscle relaxants naltrexone narcotic medicines (opiates) for pain phenobarbital ritonavir tramadol What if I miss a dose? If you miss a dose, take it as soon as you can. If it is almost time for your next dose, take only that dose. Do not take double or extra doses. Where should I keep my medicine? Keep out of the reach of children. This medicine can be abused. Keep your medicine in a safe place to protect it from theft. Do not share this medicine with anyone. Selling or giving away this medicine is dangerous and against the law. Store at room temperature between 15 and 30 degrees C (59 and 86 degrees F). Protect from light. Keep container tightly closed. Throw away any unused medicine after the expiration date. Discard unused medicine and used packaging carefully. Pets and children can be harmed if they find used or lost packages. What should I tell my health care provider before I take this medicine? They need to know if you have any of these conditions: brain tumor Crohn's disease, inflammatory bowel disease, or ulcerative colitis drink more than 3 alcohol-containing drinks per day drug abuse or addiction head injury heart or circulation problems kidney disease or problems going to the bathroom liver disease lung disease, asthma, or breathing problems an unusual or allergic reaction to acetaminophen, hydrocodone, other opioid analgesics, other medicines, foods, dyes, or preservatives or trying to get breast-feeding What should I watch for while using this medicine? Tell your doctor or health day care home provider if your pain does not go away, if it gets worse, or if you have new or a different type of pain. You may develop tolerance to the medicine. Tolerance means that you will need a higher dose of the medicine for pain relief. Tolerance is normal and is expected if you take the medicine for a long time. Do not suddenly stop taking your medicine because you may develop a severe reaction. Your body becomes used to the medicine. This does NOT mean you are addicted. Addiction is a behavior related to getting and using a drug for a non-medical reason. If you have pain, you have a medical reason to take pain medicine. Your doctor will tell you how much medicine to take. If your doctor wants you to stop the medicine, the dose will be slowly lowered over time to avoid any side effects. You may get drowsy or dizzy when you first start taking the medicine or change doses. Do not drive, use machinery, or do anything that may be dangerous until you know how the medicine affects you. Stand or sit up slowly. There are different types of narcotic medicines (opiates) for pain. If you take more than one type at the same time, you may have more side effects. Give your health care provider a list of all medicines you use. Your doctor will tell you how much medicine to take. Do not take more medicine than directed. Call emergency for help if you have problems breathing. The medicine will cause constipation. Try to have a bowel movement at least every 2 to 3 days. If you do not have a bowel movement for 3 days, call your doctor or health day care home provider. Too much acetaminophen can be very dangerous. Do not take Tylenol (acetaminophen) or medicines that contain acetaminophen with this medicine. Many non-prescription medicines contain acetaminophen. Always read the labels carefully. Ondansetron Oral disintegrating tablet What is this medicine? ONDANSETRON (on NORMA se eagle) is used to treat nausea and vomiting caused by chemotherapy. It is also used to prevent or treat nausea and vomiting after surgery. How should I use this medicine? These tablets are made to dissolve in the mouth. Do not try to push the tablet through the foil backing. With dry hands, peel away the foil backing and gently remove the tablet. Place the tablet in the mouth and allow it to dissolve, then swallow. While you may take these tablets with water, it is not necessary to do so. Talk to your asphalt tamper regarding the use of this medicine in children. Special care may be needed. What side effects may I notice from receiving this medicine? Side effects that you should report to your doctor or health day care home provider as soon as possible: allergic reactions like skin rash, itching or hives, swelling of the face, lips, or tongue breathing problems dizziness fast or irregular heartbeat feeling faint or lightheaded, falls fever and chills swelling of the hands and feet tightness in the chest Side effects that usually do not require medical attention (report to your doctor or health day care home provider if they continue or are bothersome): constipation or diarrhea headache What may interact with this medicine? Do not take this medicine with any of the following medications: -apomorphine -cisapride -dofetilide -dronedarone -pimozide -thioridazine -ziprasidone This medicine may also interact with the following medications: -carbamazepine -phenytoin -rifampicin -tramadol -other medicines that prolong the QT interval (cause an abnormal heart rhythm) What if I miss a dose? If you miss a dose, take it as soon as you can. If it is almost time for your next dose, take only that dose. Do not take double or extra doses. Where should I keep my medicine? Keep out of the reach of children. Store between 2 and 30 degrees C (36 and 86 degrees F). Throw away any unused medicine after the expiration date. What should I tell my health care provider before I take this medicine? They need to know if you have any of these conditions: heart disease history of irregular heartbeat liver disease low levels of magnesium or potassium in the blood an unusual or allergic reaction to ondansetron, granisetron, other medicines, foods, dyes, or preservatives or trying to get breast-feeding What should I watch for while using this medicine? Check with your doctor or health day care home provider as soon as you can if you have any sign of an allergic reaction. You have been given the following additional information: Abdominal Pain, Unknown Cause, (Female) Hydrocodone Bitartrate, Acetaminophen Oral tablet Ondansetron Oral disintegrating tablet (Electronically signed by Nigel Cordero Dr. 12/17/2016 11:48)
--- NOTE | 2016-12-17 11:58 | ED MAR SUMMARY ---
..... Medication Administration Record [facility] [address] [place] [address] Patient: KARYN AVALOS Visit ID: [id number] 31y, F Weight: 65.7 kg Height/Length: 66 in BMI: 23.4 ALLERGIES: Penicillins, Vicodin Start 10:12/17/2016 Jina Covington R.N., Stop 11:12/17/2016 Jina Covington R.N. Medication Administered: IV NS (SALINE), Dose: IV Fluids over 1 hour(s), Rate: 1000 mL/hr, Dispensed: 1000 mL bag, Site: #1 right AC. Medication Ordered: IV NS : initial bolus none -, then 1000 mL/hr for X1 (NOW). Given 10:12/17/2016 Jina Covington R.N. Medication Administered: TORADOL [IVP], Dose: 30 mg IVP over 1 minute(s), Site: #1 right AC. Medication Ordered: Toradol IV 30 mg (NOW). Given 10:12/17/2016 Jina Covington R.NRamon Medication Administered: ZOFRAN [IVP] (ONDANSETRON HCL), Dose: 4 mg IVP over 2 minute(s), Site: #1 right AC. Medication Ordered: Zofran IV 4 mg (NOW).
== END 2016-12-17 11:59 | disposition home or self-care (01) ==
LOC: ED SRH 09:38
DX: R10.84 Generalized abdominal pain (principal); F17.200 Nicotine dependence, unspecified, uncomplicated; Z79.2 Long term (current) use of antibiotics; Z88.0 Allergy status to penicillin; Z88.5 Allergy status to narcotic agent
CPT/HCPCS: 90004; 90100; 92235; 92530; 93070; 95059

== ENCOUNTER 2017-01-12 08:09 | Emergency (ER) | payer OTHER ==
--- NOTE | 2017-01-12 09:21 | ED ORDER SUMMARY ---
..... Patient: KARYN AVALOS OrderSheet [facility] VisitID: [id number] [address] [place] [address] 32y, F Registration Date/Time: 01/12/2017 ORDER SHEET Weight: 68.0 kg (stated) Allergies: Penicillins, Vicodin GENERAL ORDERS: EKG - ER Stat (09:02 01/12/2017 LNations ER Tech1 per protocol) (9:03 KWilliams R.N.) (Ack 9:03 LNations ER Tech1) MEDICATION ORDERS: GI Cocktail WHITE PO 30 mL with Lidocaine Viscous Mouth/Throat 15 mL, Maalox Plus Oral 15 mL (NOW) (08:50 01/12/2017 Etelvina PEREYRA) (9:02 KWilliams R.N.) IV FLUIDS: Protonix IVP 40mg 40 mg (Mix in NS 10ml over 2min) (08:51 01/12/2017 Etelvina PEREYRA) (9:03 KWilliams R.N.) ORDER SHEET NOTES: [Electronically signed by Isela Plunkett R.N. (07:55 01/13/2017)] [Electronically signed by Desean Lewis MD (13:08 01/14/2017)] [Electronically locked/signed by Isela Plunkett R.N. (07:55 01/13/2017)]
--- NOTE | 2017-01-12 09:21 | ED CLINICAL REPORT ---
Clinical Report - Physicians/Mid Levels [facility] [address] [place] [address] 01/12/2017 8:08 Patient: KARYN AVALOS Time Seen: 08:33. Arrived- By private vehicle. Historian- patient. HISTORY OF PRESENT ILLNESS Chief Complaint: CHEST PAIN. It is described as indigestion and diffuse and it is described as located in the central chest area and epigastric area. This started last night and is still present. It was abrupt in onset and has been constant and waxing/waning. No nausea. REVIEW OF SYSTEMS No chills, fever, sweats, calf pain or cough. No difficulty breathing, pedal edema, palpitations, black stools or bloody stools. No constipation, diarrhea, nausea, vomiting or urinary problems. All systems otherwise negative, except as recorded above. SOCIAL HISTORY Current every day heavy tobacco smoker (cigarette)- 1 pack per day. Occasional alcohol use. History of occasional drug use: marijuana. She lives with spouse. Has good social support. FAMILY HISTORY Denies family medical history. ADDITIONAL NOTES The nursing notes have been reviewed. PHYSICAL EXAM Vital Signs: 01/12/2017 08:10 BP: 98/73. HR: 101. RR: 19. O2 saturation: 98%. Temp: 98.7 F. Have been reviewed. Appearance: Alert. No acute distress. Eyes: Pupils equal, round and reactive to light. ENT: Pharynx normal. Neck: Normal inspection. Neck supple. CVS: Normal heart rate and rhythm. Heart sounds normal. Respiratory: No respiratory distress. Breath sounds normal. Chest nontender. 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 Abdomen: Soft. Moderate tenderness in the epigastric area. Bowel sounds normal. No organomegaly. No mass. Back: Normal external inspection. No CVA tenderness. Skin: Skin warm and dry. Normal skin color. Normal skin turgor. Extremities: Extremities exhibit normal ROM. No calf tenderness. No lower extremity edema. LABS, X-RAYS, AND EKG EKG: No acute process. Rate: 81. EKG unchanged when compared with prior EKG. (6 Sept 2015). PROGRESS AND PROCEDURES Course of Care: The patient's symptoms are now gone. Vital signs have been reviewed. Physical exam findings are improved. Alert. No acute distress. Breath sounds normal. Heart sounds normal. Abdomen soft and nontender. Skin warm and dry. Patient/family counseled. Old medical records reviewed. Disposition: Discharged. Condition: stable. CLINICAL IMPRESSION Chest pain of GI origin (due to esophagitis). INSTRUCTIONS Avoid alcohol and NSAIDS. Examples of NSAIDS include aspirin, ibuprofen (Advil) and naproxen (Aleve). Avoid salty and spicy foods. Drink plenty of fluids. Do not smoke- benefits of smoking cessation discussed (>3 -10 minutes). Seek medical help to quit smoking. Warnings: Further evaluation is necessary. GENERAL WARNINGS: Return or contact your physician immediately if your condition worsens or changes unexpectedly, if not improving as expected, or if other problems arise. Prescription Medications: Omeprazole 20 mg capsules: Take 1 orally once daily. Dispense fifteen (15). No refills. Understanding of the discharge instructions verbalized by patient. Follow-up with: [facility], , , [address], , [place], [address] Follow up Saturday in two days. Call for an appointment. (Electronically signed by Desean Lewis MD 01/14/2017 13:08)
--- NOTE | 2017-01-12 09:21 | ED CLINICAL REPORT ---
Clinical Report - Physicians/Mid Levels [facility] [address] [place] [address] 01/12/2017 8:08 Patient: KARYN AVALOS Time Seen: 08:33. Arrived- By private vehicle. Historian- patient. HISTORY OF PRESENT ILLNESS Chief Complaint: CHEST PAIN. It is described as indigestion and diffuse and it is described as located in the central chest area and epigastric area. This started last night and is still present. It was abrupt in onset and has been constant and waxing/waning. No nausea. REVIEW OF SYSTEMS No chills, fever, sweats, calf pain or cough. No difficulty breathing, pedal edema, palpitations, black stools or bloody stools. No constipation, diarrhea, nausea, vomiting or urinary problems. All systems otherwise negative, except as recorded above. SOCIAL HISTORY Current every day heavy tobacco smoker (cigarette)- 1 pack per day. Occasional alcohol use. History of occasional drug use: marijuana. She lives with spouse. Has good social support. FAMILY HISTORY Denies family medical history. ADDITIONAL NOTES The nursing notes have been reviewed. PHYSICAL EXAM Vital Signs: 01/12/2017 08:10 BP: 98/73. HR: 101. RR: 19. O2 saturation: 98%. Temp: 98.7 F. Have been reviewed. Appearance: Alert. No acute distress. Eyes: Pupils equal, round and reactive to light. ENT: Pharynx normal. Neck: Normal inspection. Neck supple. CVS: Normal heart rate and rhythm. Heart sounds normal. Respiratory: No respiratory distress. Breath sounds normal. Chest nontender. 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 Abdomen: Soft. Moderate tenderness in the epigastric area. Bowel sounds normal. No organomegaly. No mass. Back: Normal external inspection. No CVA tenderness. Skin: Skin warm and dry. Normal skin color. Normal skin turgor. Extremities: Extremities exhibit normal ROM. No calf tenderness. No lower extremity edema. LABS, X-RAYS, AND EKG EKG: No acute process. Rate: 81. EKG unchanged when compared with prior EKG. (6 Sept 2015). PROGRESS AND PROCEDURES Course of Care: The patient's symptoms are now gone. Vital signs have been reviewed. Physical exam findings are improved. Alert. No acute distress. Breath sounds normal. Heart sounds normal. Abdomen soft and nontender. Skin warm and dry. Patient/family counseled. Old medical records reviewed. Disposition: Discharged. Condition: stable. CLINICAL IMPRESSION Chest pain of GI origin (due to esophagitis). INSTRUCTIONS Avoid alcohol and NSAIDS. Examples of NSAIDS include aspirin, ibuprofen (Advil) and naproxen (Aleve). Avoid salty and spicy foods. Drink plenty of fluids. Do not smoke- benefits of smoking cessation discussed (>3 -10 minutes). Seek medical help to quit smoking. Warnings: Further evaluation is necessary. GENERAL WARNINGS: Return or contact your physician immediately if your condition worsens or changes unexpectedly, if not improving as expected, or if other problems arise. Prescription Medications: Omeprazole 20 mg capsules: Take 1 orally once daily. Dispense fifteen (15). No refills. Understanding of the discharge instructions verbalized by patient. Follow-up with: [facility], , , [address], , [place], [address] Follow up Saturday in two days. Call for an appointment. (Electronically signed by Desean Lewis MD 01/14/2017 13:08)
--- NOTE | 2017-01-12 09:21 | ED NURSING NOTES ---
Clinical Report - Nurses [facility] [address] [place] [place] [address] 01/12/2017 8:08 Patient: KARYN AVALOS TRIAGE Triage time 08:08. Acuity: LEVEL 2. Chief Complaint: CHEST PAIN. 08:15 01/12/17. Alert. No acute distress. --08:15 Isela Plunkett R.N. 08:10 01/12/17. BP: 98/73. HR: 101. RR: 19. O2 saturation: 98% on room air. Temp: 98.7 F (oral). Pain level now 04/15. --08:15 Isela Plunkett R.N. Weight: 68 kg stated. Height/Length: 66 inches Per Patient. BMI: 24.2. --08:10 Isela Plunkett R.N. Medications None. --08:13 Isela Plunkett R.N. Medication/allergy information source: the patient. --08:15 Isela Plunkett R.N. Allergies Penicillins.(rash) Vicodin. --08:14 Isela Plunkett R.N. History Arrived by private vehicle. Historian: patient. Primary physician ([facility]). ( chest pain starting last night during rest while laying in bed. Denies any recent respiratory illness. Pain is described as tight and sharp. States it is constant.). This started last night. 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 PAST MEDICAL HX: Has had a hysterectomy. Denies current . SOCIAL HX: Current every day heavy tobacco smoker- 1 pack per day. Occasional alcohol use. History of drug use: marijuana. FALL RISK ASSESSMENT: Fall risk assessment completed. No fall risk identified. NUTRITIONAL RISK ASSESSMENT: The nutritional risk assessment revealed no deficiencies. FUNCTIONAL ASSESSMENT: Functional assessment: no impairments noted. LEARNING NEEDS ASSESSMENT: The learning needs assessment revealed no barriers. SKIN INTEGRITY ASSESSMENT: Skin integrity risk assessment completed. No skin integrity risk identified. --08:15 Isela Plunkett R.N. PROBLEMS: Vomiting. Abrasion(s). Hemoptysis. Contusion. Substance Abuse. Chest Wall Pain. Otitis Externa. Otitis Media. Back Pain. Muscle Spasm. Myofascial Strain. Cardiovascular Risk Factors. Costochondritis. Atypical Chest Pain. Pelvic Pain. Anal Fissure. Hematuria. Constipation. Abdominal Pain. Dental Caries. Dyspnea. Bronchitis. Ovarian Cyst. . Anxiety Reaction. Fall. Sprain. Tetanus Status. Immunizations. Gastroenteritis. Tension-Type Headache. LNMP - Last Normal Menstrual Period. --08:14 Isela Plunkett R.N. Interventions ID band on patient. To treatment room. --08:15 Isela Plunkett R.N. PHYSICAL ASSESSMENT 08:16 01/12/17. Ambulatory to room. GENERAL / NEURO / PSYCH: Alert. Oriented X 4. She appears uncomfortable and appears restless. RESPIRATORY: Respirations not labored. CVS: Capillary refill less than 2 seconds. GI / : Abdomen soft. EXTREMITIES: No lower extremity edema. SKIN: Skin is warm and dry. --08:16 Isela Plunkett R.N. NURSING PROGRESS NOTES 08:16 01/12/17. The plan of care for this patient has been created. Patient gowned. Head of bed elevated. Call light placed in reach. Bed placed in lowest position. Brakes of bed on. Patient ready for evaluation- chart flagged. --08:16 Isela Plunkett R.N. 08:29 01/12/2017 Site #1 started via IV in the right antecubital space with an 18g angiocath; one attempt. Blood drawn: rainbow set. Labeled in the presence of the patient and sent to the lab. Saline lock flushed with 5 mL saline. --08:30 Shayy Wright R.N. 08:30 01/12/17. Patient ID band checked for patient name and birthdate: patient confirmed. Blood samples drawn from the right antecubital space with Vacutainer by nurse ; labeled in presence of the patient and sent to lab: rainbow set. Line flushed with 5 mL normal saline post blood draw. --08:30 Shayy Wright R.N. 08:57 01/12/2017 GI COCKTAIL WHITE (Simethicone) PO Oral Suspension 30 mL given. Allergies verified and confirmed 5 rights. --09:02 Isela Plunkett R.N. 09:00 01/12/2017 PROTONIX (Pantoprazole Sodium) IVP 40 mg given over 2 minute(s) via site #1. Allergies verified and confirmed 5 rights. IV patency established. IV site checked: no pain, redness, or swelling. IV flushed thoroughly pre- and post-medication administration. IVP given by RN. --09:03 Isela Plunkett R.N. 09:03 01/12/17. BP: 98/58. HR: 82. RR: 16. O2 saturation: 99% on room air. Pain level now 02/13. --09:04 Isela Plunkett R.N. 09:11 01/12/17. Reassessment after medication administered. She has had no adverse reaction. Overall patient status is improved- she states feels better. --09:11 Isela Plunkett R.N. DISPOSITION / DISCHARGE 09:27 01/12/2017 Site #1 removed upon discharge. Catheter intact. Bandage applied. --09:32 Isela Plunkett R.N. 09:34 01/12/17. Departure time: 930. Condition at departure: improved and stable. No learning barriers present. Discharge instructions provided and reviewed with the patient. Patient verbalized understanding. Written instructions provided in Nepali. The patient was discharged by the physician. She was discharged home. She left the Emergency Department ambulatory. Spouse driving. --09:34 Isela Plunkett R.N. 09:32 01/12/17. BP: 101/58. HR: 81. RR: 17. O2 saturation: 99% on room air. Temp: 98.3 F (oral). Pain level now 10. --09:34 Isela Plunkett R.N. Locked/Released at 01/13/2017 7:55 by Isela Plunkett R.N.
--- NOTE | 2017-01-12 09:21 | ED NURSING NOTES ---
Clinical Report - Nurses [facility] [address] [place] [address] 01/12/2017 8:08 Patient: KARYN AVALOS TRIAGE Triage time 08:08. Acuity: LEVEL 2. Chief Complaint: CHEST PAIN. 08:15 01/12/17. Alert. No acute distress. --08:15 Isela Plunkett R.N. 08:10 01/12/17. BP: 98/73. HR: 101. RR: 19. O2 saturation: 98% on room air. Temp: 98.7 F (oral). Pain level now 04/15. --08:15 Isela Plunkett R.N. Weight: 68 kg stated. Height/Length: 66 inches Per Patient. BMI: 24.2. --08:10 Isela Plunkett R.N. Medications None. --08:13 Isela Plunkett R.N. Medication/allergy information source: the patient. --08:15 Isela Plunkett R.N. Allergies Penicillins.(rash) Vicodin. --08:14 Isela Plunkett R.N. History Arrived by private vehicle. Historian: patient. Primary physician ([facility]). ( chest pain starting last night during rest while laying in bed. Denies any recent respiratory illness. Pain is described as tight and sharp. States it is constant.). This started last night. 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 PAST MEDICAL HX: Has had a hysterectomy. Denies current . SOCIAL HX: Current every day heavy tobacco smoker- 1 pack per day. Occasional alcohol use. History of drug use: marijuana. FALL RISK ASSESSMENT: Fall risk assessment completed. No fall risk identified. NUTRITIONAL RISK ASSESSMENT: The nutritional risk assessment revealed no deficiencies. FUNCTIONAL ASSESSMENT: Functional assessment: no impairments noted. LEARNING NEEDS ASSESSMENT: The learning needs assessment revealed no barriers. SKIN INTEGRITY ASSESSMENT: Skin integrity risk assessment completed. No skin integrity risk identified. --08:15 Isela Plunkett R.N. PROBLEMS: Vomiting. Abrasion(s). Hemoptysis. Contusion. Substance Abuse. Chest Wall Pain. Otitis Externa. Otitis Media. Back Pain. Muscle Spasm. Myofascial Strain. Cardiovascular Risk Factors. Costochondritis. Atypical Chest Pain. Pelvic Pain. Anal Fissure. Hematuria. Constipation. Abdominal Pain. Dental Caries. Dyspnea. Bronchitis. Ovarian Cyst. . Anxiety Reaction. Fall. Sprain. Tetanus Status. Immunizations. Gastroenteritis. Tension-Type Headache. LNMP - Last Normal Menstrual Period. --08:14 Isela Plunkett R.N. Interventions ID band on patient. To treatment room. --08:15 Isela Plunkett R.N. PHYSICAL ASSESSMENT 08:16 01/12/17. Ambulatory to room. GENERAL / NEURO / PSYCH: Alert. Oriented X 4. She appears uncomfortable and appears restless. RESPIRATORY: Respirations not labored. CVS: Capillary refill less than 2 seconds. GI / : Abdomen soft. EXTREMITIES: No lower extremity edema. SKIN: Skin is warm and dry. --08:16 Isela Plunkett R.N. NURSING PROGRESS NOTES 08:16 01/12/17. The plan of care for this patient has been created. Patient gowned. Head of bed elevated. Call light placed in reach. Bed placed in lowest position. Brakes of bed on. Patient ready for evaluation- chart flagged. --08:16 Isela Plunkett R.N. 08:29 01/12/2017 Site #1 started via IV in the right antecubital space with an 18g angiocath; one attempt. Blood drawn: rainbow set. Labeled in the presence of the patient and sent to the lab. Saline lock flushed with 5 mL saline. --08:30 Shayy Wright R.N. 08:30 01/12/17. Patient ID band checked for patient name and birthdate: patient confirmed. Blood samples drawn from the right antecubital space with Vacutainer by nurse ; labeled in presence of the patient and sent to lab: rainbow set. Line flushed with 5 mL normal saline post blood draw. --08:30 Shayy Wright R.N. 08:57 01/12/2017 GI COCKTAIL WHITE (Simethicone) PO Oral Suspension 30 mL given. Allergies verified and confirmed 5 rights. --09:02 Isela Plunkett R.N. 09:00 01/12/2017 PROTONIX (Pantoprazole Sodium) IVP 40 mg given over 2 minute(s) via site #1. Allergies verified and confirmed 5 rights. IV patency established. IV site checked: no pain, redness, or swelling. IV flushed thoroughly pre- and post-medication administration. IVP given by RN. --09:03 Isela Plunkett R.N. 09:03 01/12/17. BP: 98/58. HR: 82. RR: 16. O2 saturation: 99% on room air. Pain level now 02/13. --09:04 Isela Plunkett R.N. 09:11 01/12/17. Reassessment after medication administered. She has had no adverse reaction. Overall patient status is improved- she states feels better. --09:11 Isela Plunkett R.N. DISPOSITION / DISCHARGE 09:27 01/12/2017 Site #1 removed upon discharge. Catheter intact. Bandage applied. --09:32 Isela Plunkett R.N. 09:34 01/12/17. Departure time: 930. Condition at departure: improved and stable. No learning barriers present. Discharge instructions provided and reviewed with the patient. Patient verbalized understanding. Written instructions provided in Hebrew. The patient was discharged by the physician. She was discharged home. She left the Emergency Department ambulatory. Spouse driving. --09:34 Isela Plunkett R.N. 09:32 01/12/17. BP: 101/58. HR: 81. RR: 17. O2 saturation: 99% on room air. Temp: 98.3 F (oral). Pain level now 10. --09:34 Isela Plunkett R.N. Locked/Released at 01/13/2017 7:55 by Isela Plunkett R.N.
--- NOTE | 2017-01-12 09:21 | ED ORDER SUMMARY ---
..... Patient: KARYN AVALOS OrderSheet [facility] VisitID: [id number] [address] [place] [address] 32y, F Registration Date/Time: 01/12/2017 ORDER SHEET Weight: 68.0 kg (stated) Allergies: Penicillins, Vicodin GENERAL ORDERS: EKG - ER Stat (09:02 01/12/2017 LNations ER Tech1 per protocol) (9:03 KWilliams R.N.) (Ack 9:03 LNations ER Tech1) MEDICATION ORDERS: GI Cocktail WHITE PO 30 mL with Lidocaine Viscous Mouth/Throat 15 mL, Maalox Plus Oral 15 mL (NOW) (08:50 01/12/2017 Etelvina PEREYRA) (9:02 KWilliams R.N.) IV FLUIDS: Protonix IVP 40mg 40 mg (Mix in NS 10ml over 2min) (08:51 01/12/2017 Etelvina PEREYRA) (9:03 KWilliams R.N.) ORDER SHEET NOTES: [Electronically signed by Isela Plunkett R.N. (07:55 01/13/2017)] [Electronically signed by Desean Lewis MD (13:08 01/14/2017)] [Electronically locked/signed by Isela Plunkett R.N. (07:55 01/13/2017)]
--- NOTE | 2017-01-14 13:08 | ED MAR SUMMARY ---
..... Medication Administration Record [facility] [address] [place] [address] Patient: KARYN AVALOS Visit ID: [id number] 32y, F Weight: 68.0 kg Height/Length: 66 in BMI: 24.2 ALLERGIES: Penicillins, Vicodin Given 08:57 01/12/2017 Isela Plunkett R.N. Medication Administered: GI COCKTAIL WHITE [PO] (SIMETHICONE), Dose: 30 mL Oral Suspension PO. Medication Ordered: GI Cocktail WHITE PO 30 mL with Lidocaine Viscous Mouth/Throat 15 mL, Maalox Plus Oral 15 mL (NOW). Given 09:00 01/12/2017 Isela Plunkett RKelly Medication Administered: PROTONIX [IVP] (PANTOPRAZOLE SODIUM), Dose: 40 mg IVP over 2 minute(s), Site: #1 right AC. Medication Ordered: Protonix IVP 40mg 40 mg (Mix in NS 10ml over 2min).
--- NOTE | 2017-01-14 13:08 | ED DISCHARGE INSTRUCTIONS ---
Patient: KARYN AVALOS General Instructions [facility] VisitID: [id number] [address] [place] [address] 32y, F Registration Date/Time: 01/12/2017 Chest pain of GI origin (due to esophagitis). INSTRUCTIONS Avoid alcohol and NSAIDS. Examples of NSAIDS include aspirin, ibuprofen (Advil) and naproxen (Aleve). Avoid salty and spicy foods. Drink plenty of fluids. Do not smoke- benefits of smoking cessation discussed (>3 -10 minutes). Seek medical help to quit smoking. Warnings: Further evaluation is necessary. GENERAL WARNINGS: Return or contact your physician immediately if your condition worsens or changes unexpectedly, if not improving as expected, or if other problems arise. Prescription Medications: Omeprazole 20 mg capsules: Take 1 orally once daily. Dispense fifteen (15). No refills. Understanding of the discharge instructions verbalized by patient. Follow-up with: [facility], , , [address], , [place], [id number] Follow up Saturday in two days. Call for an appointment. ADDITIONAL INFORMATION GERD (Adult) The esophagus is a tube that carries food from the mouth to the stomach. A valve at the lower end of the esophagus prevents stomach acid from flowing upward. If this valve does not work properly, acid from the stomach enters the esophagus. If this occurs over and over, the acid will injure the lining of the esophagus. This condition is called GERD (gastroesophageal reflux disease) or acid reflux. When stomach acid flows upward into the esophagus, it causes burning, pressure or sharp pain in the upper abdomen or mid to lower chest. The pain can spread to the neck, back, or shoulder, similar to heart pain (angina). There may be belching, an acid taste in the back of the throat, chronic cough, or sore throat or hoarseness. GERD symptoms often occur during the day after a big meal, but it can also occur at night when lying down. Smoking,as well as drinking alcohol, increases the risk of GERD. GERD is a chronic condition. Once it begins, it is often lifelong. Treatment includes changes in eating habits and the use of acid breezy medications to decrease the amount of acid in the stomach. Symptoms often improve with treatment, but if treatment is stopped, the symptoms usually return after a few months. So most persons with GERD will need to continue treatment. Home Care: Take the prescribed acid breezy medication for the full course of treatment even if you begin to feel better sooner. This medication can take up to several days to fully control your symptoms. If you cant afford the prescribed medication, you can try [id number] acid blockers, such as Pepcid AC, Tagamet, Zantac, or Aciphex. If these do not relieve your symptoms, a stronger acid-breezy can be tried, such as Prilosec OTC. You can use antacids, such as Tums, Rolaids, Mylanta, or Maalox, for pain. This will be useful the first few days after starting acid blockers when the blockers havent started working yet. Follow the directions on the label. Liquid antacids may work better than tablets. Note that antacids can interfere with absorption of certain medications. Specifically, do not take Tagamet (cimetidine), Zantac (ranitidine), or Carafate (sucralfate) within 1 hour of taking an antacid. Talk with your pharmacist if you have any questions. Limit or avoid fatty, fried, and spicy foods, as well as coffee, chocolate, mint, and foods with high acid content such as tomatoes and citrus fruit and juices (orange, grapefruit, lemon). Avoid alcohol and smoking. Dont eat large meals, especially at night. Frequent, smaller meals are best. Do not lie down right after eating. And dont eat anything 3 hours before going to bed. If you are overweight, losing weight will reduce symptoms. Women should not wear corsets or girdles because this increases pressure on the stomach and worsens reflux. If your symptoms occur during sleep, use a foam wedge to elevate your upper body (not just your head.) Or, place 4" blocks under the head of your bed. Follow Up with your doctor or as advised by our staff. Further testing may be needed. If you do not begin to improve over the next 4 days, contact your doctor. If you had an x-ray, CT scan, or ECG (electrocardiogram), it will be reviewed by a specialist. Youll be notified of any new findings that affect your care. Get Prompt Medical Attention if any of the following occur: Stomach pain gets worse or moves to the lower right abdomen (appendix area) Chest pain appears or gets worse, or spreads to the back, neck, shoulder, or arm Frequent vomiting (cant keep down liquids) Blood in the stool or vomit (red or black in color) Feeling weak or dizzy, fainting, or trouble breathing Fever of 100.4F (38C) or higher, or as directed by your healthcare provider [place] Diet A bland diet is used for patients with an upset stomach. It consists of foods that are mild and easy to digest. It is better to eat small frequent meals rather than three large meals a day. BEVERAGES OK: Fruit juices, non-caffeinated teas and coffee, non-carbonated spence AVOID: Carbonated beverage, caffeinated tea and coffee, all alcoholic beverages BREAD OK: Refined white, wheat or rye bread, juwan or soda crackers, [place] toast, plain rolls, bagels AVOID: Whole-grain bread CEREAL OK: Refined cereals: cooked or ready to eat AVOID: Whole grain cereals and granola, or those containing bran, seeds or nuts DESSERTS OK: Peanut butter and all others except those to "avoid" AVOID: Chocolate, cocoa, coconut, popcorn, nuts, seeds, jam, marmalade FRUITS OK: Canned, cooked, frozen or fresh fruits without seeds or tough skin AVOID: Olives, skin and seeds of fruit MEATS OK: All fresh or preserved meat, fish and fowl AVOID: Any that are prepared with those spices to "avoid" CHEESE & EGGS OK: Eggs, cottage cheese, cream cheese, other cheeses AVOID: All cheeses made with those spices to "avoid" POTATOES & PASTA OK: Potato, rice, macaroni, noodles, spaghetti AVOID: None SOUPS OK: All soups without heavy seasoning AVOID: Soups made with those spices to "avoid" VEGETABLES OK: Canned, cooked, fresh or frozen mildly flavored vegetables without seeds, skins or coarse fiber AVOID: Vegetables prepared with those spices to "avoid"; skin and seeds of vegetables and those with coarse fiber SPICES OK: Salt, lemon and [place] juice, vinegar, all extracts, giovanna, cinnamon, thyme, mace, allspice, paprika AVOID: [place] powder, cloves, pepper, seed spices, garlic, gravy pickles, highly seasoned salad dressings How To Quit Smoking Smoking is one of the hardest habits to break. About half of all those who have ever smoked have been able to quit, and most of those (about 70%) who still smoke want to quit. Here are some of the best ways to stop smoking. Keep Trying: It takes most smokers about 8 tries before they are finally able to fully quit. So, the more often you try and fail, the better your chance of quitting the next time! So, don't give up! Go Cold [place]: Most ex-smokers quit cold turkey. Trying to cut back gradually doesn't seem to work as well, perhaps because it continues the smoking habit. Also, it is possible to fool yourself by inhaling more while smoking fewer cigarettes. This results in the same amount of nicotine in your body! Get Support: Support programs can make an important difference, especially for the heavy smoker. These groups offer lectures, methods to change your behavior and peer support. Call the free national Quitline for more information. 911-OQRG-YOU (937-787-0458). Low-cost or free programs are offered by many hospitals, local chapters of the [place] [employer] (498-223-9062) and the [place] [employer] (546-732-2258). Support at home is important too. Non-smokers can help by offering praise and encouragement. If the smoker fails to quit, encourage them to try again! Bnik-Ctw-Pjeoswl Medicines: For those who can't quit on their own, Nicotine Replacement Therapy (NRT) may make quitting much easier. Certain aids such as the nicotine patch, gum and lozenge are available without a prescription. However, it is best to use these under the guidance of your doctor. The skin patch provides a steady supply of nicotine to the body. Nicotine gum and lozenge gives temporary bursts of low levels of nicotine. Both methods take the edge off the craving for cigarettes. WARNING: If you feel symptoms of nicotine overdose, such as nausea, vomiting, dizziness, weakness, or fast heartbeat, stop using these and see your doctor. Prescription Medicines: After evaluating your smoking patterns and prior attempts at quitting, your doctor may offer a prescription medicine such as bupropion (Zyban, Wellbutrin), varenicline (Chantix, Champix), a niocotine inhaler or nasal spray. Each has its unique advantage and side effects which your doctor can review with you. Health Benefits Of Quitting: The benefits of quitting start right away and keep improving the longer you go without smokin minutes: blood pressure and pulse return to normal 8 hours: oxygen levels return to normal 2 days: ability to smell and taste begins to improve as damaged nerves start to regrow 2-3 weeks: circulation and lung function improves 1-9 months: decreased cough, congestion and shortness of breath; less tired 1 year: risk of heart attack decreases by half 5 years: risk of lung cancer decreases by half; risk of stroke becomes the same as a non-smoker For information about how to quit smoking, visit the following links: National [employer] [place] , Clearing the Air, Quit Smoking Today - an online booklet. http://www.smokefree.gov/pubs/clearing_the_air.pdf Smokefree.gov http://smokefree.gov/ QuitNet http://www.quitnet.com/ Omeprazole Magnesium Gastro-resistant tablet What is this medicine? OMEPRAZOLE (oh ME pray zol) prevents the production of acid in the stomach. It is used to treat the symptoms of heartburn. You can buy this medicine without a prescription. This product is not for long-term use, unless otherwise directed by your doctor or health day care worker. How should I use this medicine? Take this medicine by mouth. Follow the directions on the product label. If you are taking this medicine without a prescription, take one tablet every day. Do not use for longer than 14 days or repeat a course of treatment more often than every 4 months unless directed by a doctor or healthcare professional. Take your dose at regular intervals every 24 hours. Swallow the tablet whole with a drink of water. Do not crush, break or chew. This medicine works best if taken on an empty stomach 30 minutes before breakfast. If you are using this medicine with the prescription of your doctor or healthcare professional, follow the directions you were given. Do not take your medicine more often than directed. Talk to your proposal development manager regarding the use of this medicine in children. Special care may be needed. What side effects may I notice from receiving this medicine? Side effects that you should report to your doctor or health day care worker as soon as possible: allergic reactions like skin rash, itching or hives, swelling of the face, lips, or tongue bone, muscle or joint pain breathing problems chest pain or chest tightness dark yellow or brown urine diarrhea dizziness fast, irregular heartbeat feeling faint or lightheaded fever or sore throat muscle spasm palpitations redness, blistering, peeling or loosening of the skin, including inside the mouth seizures tremors unusual bleeding or bruising unusually weak or tired yellowing of the eyes or skin Side effects that usually do not require medical attention (Report these to your doctor or health day care worker if they continue or are bothersome.): constipation dry mouth headache loose stools nausea What may interact with this medicine? Do not take this medicine with any of the following medications: atazanavir clopidogrel nelfinavir This medicine may also interact with the following medications: ampicillin certain medicines for anxiety or sleep certain medicines that treat or prevent blood clots like warfarin cyclosporine diazepam digoxin disulfiram iron salts phenytoin prescription medicine for fungal or yeast infection like itraconazole, ketoconazole, voriconazole saquinavir tacrolimus What if I miss a dose? If you miss a dose, take it as soon as you can. If it is almost time for your next dose, take only that dose. Do not take double or extra doses. Where should I keep my medicine? Keep out of the reach of children. Store at room temperature between 20 and 25 degrees C (68 and 77 degrees F). Protect from light and moisture. Throw away any unused medicine after the expiration date. What should I tell my health care provider before I take this medicine? They need to know if you have any of these conditions: black or bloody stools chest pain difficulty swallowing have had heartburn for over 3 months have heartburn with dizziness, lightheadedness or sweating liver disease stomach pain unexplained weight loss vomiting with blood wheezing an unusual or allergic reaction to omeprazole, other medicines, foods, dyes, or preservatives or trying to get breast-feeding What should I watch for while using this medicine? It can take several days before your heartburn gets better. Check with your doctor or health day care worker if your condition does not start to get better, or if it gets worse. Do not treat diarrhea with over the counter products. Contact your doctor if you have diarrhea that lasts more than 2 days or if it is severe and watery. Do not treat yourself for heartburn with this medicine for more than 14 days in a row. You should only use this medicine for a 2-week treatment period once every 4 months. If your symptoms return shortly after your therapy is complete, or within the 4 month time frame, call your doctor or health day care worker. You have been given the following additional information: GERD (Adult) Diet, [place] (Adult) Smoking Cessation Omeprazole Magnesium Gastro-resistant tablet (Electronically signed by Desean Lewis MD 01/14/2017 13:08)
--- NOTE | 2017-01-14 13:08 | ED MAR SUMMARY ---
..... Medication Administration Record [facility] [address] [place] [address] Patient: KARYN AVALOS Visit ID: [id number] 32y, F Weight: 68.0 kg Height/Length: 66 in BMI: 24.2 ALLERGIES: Penicillins, Vicodin Given 08:57 01/12/2017 Isela Plunkett R.N. Medication Administered: GI COCKTAIL WHITE [PO] (SIMETHICONE), Dose: 30 mL Oral Suspension PO. Medication Ordered: GI Cocktail WHITE PO 30 mL with Lidocaine Viscous Mouth/Throat 15 mL, Maalox Plus Oral 15 mL (NOW). Given 09:00 01/12/2017 Isela Plunkett RKelly Medication Administered: PROTONIX [IVP] (PANTOPRAZOLE SODIUM), Dose: 40 mg IVP over 2 minute(s), Site: #1 right AC. Medication Ordered: Protonix IVP 40mg 40 mg (Mix in NS 10ml over 2min).
--- NOTE | 2017-01-14 13:08 | ED DISCHARGE INSTRUCTIONS ---
Patient: KARYN AVALOS General Instructions [facility] VisitID: [id number] [address] [place] [address] 32y, F Registration Date/Time: 01/12/2017 Chest pain of GI origin (due to esophagitis). INSTRUCTIONS Avoid alcohol and NSAIDS. Examples of NSAIDS include aspirin, ibuprofen (Advil) and naproxen (Aleve). Avoid salty and spicy foods. Drink plenty of fluids. Do not smoke- benefits of smoking cessation discussed (>3 -10 minutes). Seek medical help to quit smoking. Warnings: Further evaluation is necessary. GENERAL WARNINGS: Return or contact your physician immediately if your condition worsens or changes unexpectedly, if not improving as expected, or if other problems arise. Prescription Medications: Omeprazole 20 mg capsules: Take 1 orally once daily. Dispense fifteen (15). No refills. Understanding of the discharge instructions verbalized by patient. Follow-up with: [facility], , , [address], , [place], [address] Follow up Saturday in two days. Call for an appointment. ADDITIONAL INFORMATION GERD (Adult) The esophagus is a tube that carries food from the mouth to the stomach. A valve at the lower end of the esophagus prevents stomach acid from flowing upward. If this valve does not work properly, acid from the stomach enters the esophagus. If this occurs over and over, the acid will injure the lining of the esophagus. This condition is called GERD (gastroesophageal reflux disease) or acid reflux. When stomach acid flows upward into the esophagus, it causes burning, pressure or sharp pain in the upper abdomen or mid to lower chest. The pain can spread to the neck, back, or shoulder, similar to heart pain (angina). There may be belching, an acid taste in the back of the throat, chronic cough, or sore throat or hoarseness. GERD symptoms often occur during the day after a big meal, but it can also occur at night when lying down. Smoking,as well as drinking alcohol, increases the risk of GERD. GERD is a chronic condition. Once it begins, it is often lifelong. Treatment includes changes in eating habits and the use of acid breezy medications to decrease the amount of acid in the stomach. Symptoms often improve with treatment, but if treatment is stopped, the symptoms usually return after a few months. So most persons with GERD will need to continue treatment. Home Care: Take the prescribed acid breezy medication for the full course of treatment even if you begin to feel better sooner. This medication can take up to several days to fully control your symptoms. If you cant afford the prescribed medication, you can try apjk-ekb-yigwzuh acid blockers, such as Pepcid AC, Tagamet, Zantac, or Aciphex. If these do not relieve your symptoms, a stronger acid-breezy can be tried, such as Prilosec OTC. You can use antacids, such as Tums, Rolaids, Mylanta, or Maalox, for pain. This will be useful the first few days after starting acid blockers when the blockers havent started working yet. Follow the directions on the label. Liquid antacids may work better than tablets. Note that antacids can interfere with absorption of certain medications. Specifically, do not take Tagamet (cimetidine), Zantac (ranitidine), or Carafate (sucralfate) within 1 hour of taking an antacid. Talk with your pharmacist if you have any questions. Limit or avoid fatty, fried, and spicy foods, as well as coffee, chocolate, mint, and foods with high acid content such as tomatoes and citrus fruit and juices (orange, grapefruit, lemon). Avoid alcohol and smoking. Dont eat large meals, especially at night. Frequent, smaller meals are best. Do not lie down right after eating. And dont eat anything 3 hours before going to bed. If you are overweight, losing weight will reduce symptoms. Women should not wear corsets or girdles because this increases pressure on the stomach and worsens reflux. If your symptoms occur during sleep, use a foam wedge to elevate your upper body (not just your head.) Or, place 4" blocks under the head of your bed. Follow Up with your doctor or as advised by our staff. Further testing may be needed. If you do not begin to improve over the next 4 days, contact your doctor. If you had an x-ray, CT scan, or ECG (electrocardiogram), it will be reviewed by a specialist. Youll be notified of any new findings that affect your care. Get Prompt Medical Attention if any of the following occur: Stomach pain gets worse or moves to the lower right abdomen (appendix area) Chest pain appears or gets worse, or spreads to the back, neck, shoulder, or arm Frequent vomiting (cant keep down liquids) Blood in the stool or vomit (red or black in color) Feeling weak or dizzy, fainting, or trouble breathing Fever of 100.4F (38C) or higher, or as directed by your healthcare provider [place] Diet A bland diet is used for patients with an upset stomach. It consists of foods that are mild and easy to digest. It is better to eat small frequent meals rather than three large meals a day. BEVERAGES OK: Fruit juices, non-caffeinated teas and coffee, non-carbonated spence AVOID: Carbonated beverage, caffeinated tea and coffee, all alcoholic beverages BREAD OK: Refined white, wheat or rye bread, juwan or soda crackers, [place] toast, plain rolls, bagels AVOID: Whole-grain bread CEREAL OK: Refined cereals: cooked or ready to eat AVOID: Whole grain cereals and granola, or those containing bran, seeds or nuts DESSERTS OK: Peanut butter and all others except those to "avoid" AVOID: Chocolate, cocoa, coconut, popcorn, nuts, seeds, jam, marmalade FRUITS OK: Canned, cooked, frozen or fresh fruits without seeds or tough skin AVOID: Olives, skin and seeds of fruit MEATS OK: All fresh or preserved meat, fish and fowl AVOID: Any that are prepared with those spices to "avoid" CHEESE & EGGS OK: Eggs, cottage cheese, cream cheese, other cheeses AVOID: All cheeses made with those spices to "avoid" POTATOES & PASTA OK: Potato, rice, macaroni, noodles, spaghetti AVOID: None SOUPS OK: All soups without heavy seasoning AVOID: Soups made with those spices to "avoid" VEGETABLES OK: Canned, cooked, fresh or frozen mildly flavored vegetables without seeds, skins or coarse fiber AVOID: Vegetables prepared with those spices to "avoid"; skin and seeds of vegetables and those with coarse fiber SPICES OK: Salt, lemon and [place] juice, vinegar, all extracts, giovanna, cinnamon, thyme, mace, allspice, paprika AVOID: [place] powder, cloves, pepper, seed spices, garlic, gravy pickles, highly seasoned salad dressings How To Quit Smoking Smoking is one of the hardest habits to break. About half of all those who have ever smoked have been able to quit, and most of those (about 70%) who still smoke want to quit. Here are some of the best ways to stop smoking. Keep Trying: It takes most smokers about 8 tries before they are finally able to fully quit. So, the more often you try and fail, the better your chance of quitting the next time! So, don't give up! Go Cold [place]: Most ex-smokers quit cold turkey. Trying to cut back gradually doesn't seem to work as well, perhaps because it continues the smoking habit. Also, it is possible to fool yourself by inhaling more while smoking fewer cigarettes. This results in the same amount of nicotine in your body! Get Support: Support programs can make an important difference, especially for the heavy smoker. These groups offer lectures, methods to change your behavior and peer support. Call the free national Quitline for more information. 044-IYCL-RBQ (642-033-5020). Low-cost or free programs are offered by many hospitals, local chapters of the [place] [employer] (292-407-9637) and the [place] [employer] (127-432-9800). Support at home is important too. Non-smokers can help by offering praise and encouragement. If the smoker fails to quit, encourage them to try again! Vbsz-Fmx-Ggbopeg Medicines: For those who can't quit on their own, Nicotine Replacement Therapy (NRT) may make quitting much easier. Certain aids such as the nicotine patch, gum and lozenge are available without a prescription. However, it is best to use these under the guidance of your doctor. The skin patch provides a steady supply of nicotine to the body. Nicotine gum and lozenge gives temporary bursts of low levels of nicotine. Both methods take the edge off the craving for cigarettes. WARNING: If you feel symptoms of nicotine overdose, such as nausea, vomiting, dizziness, weakness, or fast heartbeat, stop using these and see your doctor. Prescription Medicines: After evaluating your smoking patterns and prior attempts at quitting, your doctor may offer a prescription medicine such as bupropion (Zyban, Wellbutrin), varenicline (Chantix, Champix), a niocotine inhaler or nasal spray. Each has its unique advantage and side effects which your doctor can review with you. Health Benefits Of Quitting: The benefits of quitting start right away and keep improving the longer you go without smokin minutes: blood pressure and pulse return to normal 8 hours: oxygen levels return to normal 2 days: ability to smell and taste begins to improve as damaged nerves start to regrow 2-3 weeks: circulation and lung function improves 1-9 months: decreased cough, congestion and shortness of breath; less tired 1 year: risk of heart attack decreases by half 5 years: risk of lung cancer decreases by half; risk of stroke becomes the same as a non-smoker For information about how to quit smoking, visit the following links: National Cancer [place] , Clearing the Air, Quit Smoking Today - an online booklet. http://www.smokefree.gov/pubs/clearing_the_air.pdf Smokefree.gov http://smokefree.gov/ QuitNet http://www.quitnet.com/ Omeprazole Magnesium Gastro-resistant tablet What is this medicine? OMEPRAZOLE (oh ME pray zol) prevents the production of acid in the stomach. It is used to treat the symptoms of heartburn. You can buy this medicine without a prescription. This product is not for long-term use, unless otherwise directed by your doctor or health field care coordinator. How should I use this medicine? Take this medicine by mouth. Follow the directions on the product label. If you are taking this medicine without a prescription, take one tablet every day. Do not use for longer than 14 days or repeat a course of treatment more often than every 4 months unless directed by a doctor or healthcare professional. Take your dose at regular intervals every 24 hours. Swallow the tablet whole with a drink of water. Do not crush, break or chew. This medicine works best if taken on an empty stomach 30 minutes before breakfast. If you are using this medicine with the prescription of your doctor or healthcare professional, follow the directions you were given. Do not take your medicine more often than directed. Talk to your branch specialist regarding the use of this medicine in children. Special care may be needed. What side effects may I notice from receiving this medicine? Side effects that you should report to your doctor or health field care coordinator as soon as possible: allergic reactions like skin rash, itching or hives, swelling of the face, lips, or tongue bone, muscle or joint pain breathing problems chest pain or chest tightness dark yellow or brown urine diarrhea dizziness fast, irregular heartbeat feeling faint or lightheaded fever or sore throat muscle spasm palpitations redness, blistering, peeling or loosening of the skin, including inside the mouth seizures tremors unusual bleeding or bruising unusually weak or tired yellowing of the eyes or skin Side effects that usually do not require medical attention (Report these to your doctor or health field care coordinator if they continue or are bothersome.): constipation dry mouth headache loose stools nausea What may interact with this medicine? Do not take this medicine with any of the following medications: atazanavir clopidogrel nelfinavir This medicine may also interact with the following medications: ampicillin certain medicines for anxiety or sleep certain medicines that treat or prevent blood clots like warfarin cyclosporine diazepam digoxin disulfiram iron salts phenytoin prescription medicine for fungal or yeast infection like itraconazole, ketoconazole, voriconazole saquinavir tacrolimus What if I miss a dose? If you miss a dose, take it as soon as you can. If it is almost time for your next dose, take only that dose. Do not take double or extra doses. Where should I keep my medicine? Keep out of the reach of children. Store at room temperature between 20 and 25 degrees C (68 and 77 degrees F). Protect from light and moisture. Throw away any unused medicine after the expiration date. What should I tell my health care provider before I take this medicine? They need to know if you have any of these conditions: black or bloody stools chest pain difficulty swallowing have had heartburn for over 3 months have heartburn with dizziness, lightheadedness or sweating liver disease stomach pain unexplained weight loss vomiting with blood wheezing an unusual or allergic reaction to omeprazole, other medicines, foods, dyes, or preservatives or trying to get breast-feeding What should I watch for while using this medicine? It can take several days before your heartburn gets better. Check with your doctor or health field care coordinator if your condition does not start to get better, or if it gets worse. Do not treat diarrhea with over the counter products. Contact your doctor if you have diarrhea that lasts more than 2 days or if it is severe and watery. Do not treat yourself for heartburn with this medicine for more than 14 days in a row. You should only use this medicine for a 2-week treatment period once every 4 months. If your symptoms return shortly after your therapy is complete, or within the 4 month time frame, call your doctor or health field care coordinator. You have been given the following additional information: GERD (Adult) Diet, [place] (Adult) Smoking Cessation Omeprazole Magnesium Gastro-resistant tablet (Electronically signed by Desean Lewis MD 01/14/2017 13:08)
--- NOTE | 2017-01-14 13:09 | ED MED RECONCILIATION SUMMARY ---
Patient: KARYN AVALOS Medication Reconciliation Report [facility] VisitID: [id number] [address] [place] [address] 32y, F Registration Date/Time: 01/12/2017 Weight: 68.0 kg Height/Length: 66 in. BMI: 24.2 ALLERGIES: Penicillins, Vicodin The patient's Home Medications are listed below: NONE. The source(s) of the original Home Medication information: patient The following Medications were given to the patient in the Emergency Department: GI COCKTAIL WHITE [PO] PO 30 mL, administered: 01/12/2017 8:57:00 AM PROTONIX [IVP] IVP 40 mg, administered: 01/12/2017 9:00:00 AM The following Medications were prescribed to the patient: Omeprazole 20 mg capsules: Take 1 orally once daily. Dispense fifteen (15). No refills. -- Desean Lewis MD
--- NOTE | 2017-01-14 13:09 | ED MED RECONCILIATION SUMMARY ---
Patient: KARYN AVALOS Medication Reconciliation Report [facility] VisitID: [id number] [address] [place] [address] 32y, F Registration Date/Time: 01/12/2017 Weight: 68.0 kg Height/Length: 66 in. BMI: 24.2 ALLERGIES: Penicillins, Vicodin The patient's Home Medications are listed below: NONE. The source(s) of the original Home Medication information: patient The following Medications were given to the patient in the Emergency Department: GI COCKTAIL WHITE [PO] PO 30 mL, administered: 01/12/2017 8:57:00 AM PROTONIX [IVP] IVP 40 mg, administered: 01/12/2017 9:00:00 AM The following Medications were prescribed to the patient: Omeprazole 20 mg capsules: Take 1 orally once daily. Dispense fifteen (15). No refills. -- Desean Lewis MD
== END 2017-01-12 09:31 | disposition home or self-care (01) ==
LOC: ED SRH 08:09
DX: R07.9 Chest pain, unspecified (principal); K20.9 Esophagitis, unspecified; F17.210 Nicotine dependence, cigarettes, uncomplicated; Z88.0 Allergy status to penicillin; Z88.5 Allergy status to narcotic agent

== ENCOUNTER 2017-01-27 09:53 | Emergency (ER) | payer OTHER ==
--- NOTE | 2017-01-27 11:30 | DIAGNOSTIC IMAGING REPORT ---
PROCEDURE: XR HIP 2VW W W/O AP PELVIS-LT INDICATION: PAIN TECHNIQUE: AP view of the pelvis and hips with lateral view of the left hip. COMPARISON: None. FINDINGS: LEFT HIP: Osseous structures and joint spaces are normal. PELVIS: Osseous pelvis is normal. IMPRESSION: 1. Negative pelvis and left hip.
--- NOTE | 2017-01-27 11:41 | ED CLINICAL REPORT ---
Clinical Report - Physicians/Mid Levels [facility] [address] [place] [address] 01/27/2017 9:54 Patient: KARYN AVALOS Time Seen: 10:08; initial patient contact. Arrived- By private vehicle. Historian- patient. HISTORY OF PRESENT ILLNESS Chief Complaint: Injury to left leg. The injury happened yesterday. [place]urred at a park. Fell while walking and landed on the ground; tripped. Patient is experiencing moderate pain. Patient denies injury to the head or neck. Patient also notes injury to the left lower extremity (thigh), (knee) and (leg). REVIEW OF SYSTEMS The patient complains of pain on weight bearing. She has had swelling. No tingling, weakness, numbness, skin laceration or chest pain. No back pain or neck pain. All systems otherwise negative, except as recorded above. PAST HISTORY ( Chest Pain of GI Origin. Vomiting. Abrasion(s). Hemoptysis. Contusion. Substance Abuse. Chest Wall Pain. Otitis Externa. Otitis Media. Back Pain. Muscle Spasm. Myofascial Strain. Cardiovascular Risk Factors. Costochondritis. Atypical Chest Pain. Pelvic Pain. Anal Fissure. Hematuria. Constipation. Abdominal Pain. Dental Caries. Dyspnea. Bronchitis. Ovarian Cyst. Anxiety Reaction. Fall. Sprain. Gastroenteritis. Tension-Type Headache. Pelvic Inflammatory Disease Irritable Bowel Syndrome SURGERIES: Dilatation & Curettage. Hysterectomy. Tubal Ligation). SOCIAL HISTORY Current every day smoker. History of drug use: marijuana. ADDITIONAL NOTES The nursing notes have been reviewed. PHYSICAL EXAM Vital Signs: 01/27/2017 10:05 BP: 115/76. HR: 82. RR: 20. O2 saturation: 100%. Temp: 98.9 F. Pain level now: 7/10. Have been reviewed as normal. Appearance: Alert. Oriented X3. No acute distress. Head: Head atraumatic. Neck: Normal inspection. Neck supple. C-spine non-tender. Respiratory: No respiratory distress. Breath sounds normal. Chest nontender. Abdomen: No visible injury. Soft and nontender. Bowel sounds normal. Back: Normal inspection. No tenderness. ROM normal. Skin: Skin warm and dry. Extremities: Left hip: moderate tenderness, mild swelling and medium sized ecchymosis located in the lateral aspect of the hip. Limited ROM secondary to pain (diminished flexion, extension and internal rotation). Neurovascular intact distally. No erythema, abrasion or deformity. Left knee: mild erythema and tenderness and small abrasion and ecchymosis. Neurovascular intact distally. No ligamentous laxity present. No joint effusion. No swelling or deformity. No limitation in ROM. Extremities otherwise negative. Neuro, Vascular and Tendons: Vascular status intact. Sensation intact. Motor intact. Tendon function intact. Gait: Limping gait. Neuro: Oriented X 3. No motor deficit. LABS, X-RAYS, AND EKG Lt Hip X-ray: No fracture. Normal alignment. No bony lesion, air in the soft tissue or foreign body. Soft tissues normal. Joint spaces normal. Views: AP and Frogleg lateral. Technique: good. The X-rays were independently viewed by me and interpreted contemporaneously by me. Prior films were not available for comparison. Interpretation time: 11:36. PROGRESS AND PROCEDURES Disposition: Discharged home in good and improved condition. Condition: good. CLINICAL IMPRESSION Multiple contusions with soft tissue hematoma to the left hip, left thigh, left knee and left lower leg. Traumatic bursitis of the left hip. INSTRUCTIONS Apply ice for 20 minutes four times a day until better. Don't apply ice directly to skin. Your Current Medications: CONTINUE TAKING THE FOLLOWING MEDICATIONS: None*. Prescription Medications: Diclofenac 50 mg tablets: take 1 tablet orally every 8 hours as needed for pain or stiffness. Dispense thirty (30). No refill. Follow-up: Follow up with your doctor in about two days. Call for an appointment. Screening today revealed the patient's blood pressure to be in the normal range. (Electronically signed by Nigel Cordero Dr. 01/27/2017 11:43)
--- NOTE | 2017-01-27 11:41 | ED ORDER SUMMARY ---
..... Patient: KARYN AVALOS OrderSheet [facility] VisitID: [id number] [address] [place] [address] 32y, F Registration Date/Time: 01/27/2017 ORDER SHEET Weight: 68.0 kg (stated) Allergies: PCN, Vicodin GENERAL ORDERS: Hip 2V Left w AP Pelvis Urgent (10:31 01/27/2017 Juan David Vaughn) (Ack 10:48 TBergley) (11:16 TBergley) MEDICATION ORDERS: Toradol IM 60 mg (NOW) (10:32 01/27/2017 Juan David Vaughn) (Ack 10:38 SRoberts R.N.) (10:44 SRoberts R.N.) IV FLUIDS: ORDER SHEET NOTES: [Electronically signed by Nigel Cordero Dr. (11:43 01/27/2017)] [Electronically signed by Shelbie Adan R.N. (12:32 01/27/2017)] [Electronically locked/signed by Shelbie Adan R.N. (12:32 01/27/2017)]
--- NOTE | 2017-01-27 11:41 | ED ORDER SUMMARY ---
..... Patient: KARYN AVALOS OrderSheet [facility] VisitID: [id number] [address] [place] [address] 32y, F Registration Date/Time: 01/27/2017 ORDER SHEET Weight: 68.0 kg (stated) Allergies: PCN, Vicodin GENERAL ORDERS: Hip 2V Left w AP Pelvis Urgent (10:31 01/27/2017 Juan David Vaughn) (Ack 10:48 TBergley) (11:16 TBergley) MEDICATION ORDERS: Toradol IM 60 mg (NOW) (10:32 01/27/2017 Juan David Vaughn) (Ack 10:38 SRoberts R.N.) (10:44 SRoberts R.N.) IV FLUIDS: ORDER SHEET NOTES: [Electronically signed by Nigel Cordero Dr. (11:43 01/27/2017)] [Electronically signed by Shelbie Adan R.N. (12:32 01/27/2017)] [Electronically locked/signed by Shelbie Adan R.N. (12:32 01/27/2017)]
--- NOTE | 2017-01-27 11:41 | ED NURSING NOTES ---
Clinical Report - Nurses [facility] [address] [place] [address] 01/27/2017 9:54 Patient: KARYN AVALOS TRIAGE Triage time 10:03. Acuity: LEVEL 4. Chief Complaint: INJURY TO THE LEFT HIP, LEFT THIGH, LEFT LEG and LEFT ANKLE. Alert. No acute distress. HANNAH COMA SCORE: [place] Coma Scale: 15- eyes open spontaneously (4); best verbal response- oriented x 4 (5); best motor response- obeys commands (6). --10:10 Shelbie Adan R.N. 10:05 01/27/17. BP: 115/76. HR: 82. RR: 20. O2 saturation: 100%. Temp: 98.9 F. Pain level now: 04/15. Additional comments: 06/16 when walking . --10:10 Shelbie Adan R.N. Weight: 68 kg stated. Height/Length: 63 inches Per Patient. BMI: 26.6. --10:07 Shelbie Adan R.N. Medications None. --10:07 Shelbie Adan R.N. Allergies PCN. --10:07 Shelbie Adan R.N. Vicodin.(itching, rash) --10:08 Shelbie Adan R.N. Medication/allergy information source: the patient. --10:10 Shelbie Adan R.N. History Arrived by private vehicle. Historian: patient. Primary physician (chc). ( drove self). [place]. Mechanism of injury: fell (On cardoza and landed on rock, and logs, twisted.). She has had trouble walking. The patient has been limping when trying to walk. 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 PAST MEDICAL HX: Tetanus status: unknown. The patient has had a hysterectomy. SOCIAL HX: Heavy tobacco smoker- less than 1 pack per day. Does not smoke cigarettes. History of drug use: marijuana. Recently used drugs days ago. No alcohol use. FALL RISK ASSESSMENT: Fall risk assessment completed. No fall risk identified. NUTRITIONAL RISK ASSESSMENT: The nutritional risk assessment revealed no deficiencies. FUNCTIONAL ASSESSMENT: Functional assessment: no impairments noted. LEARNING NEEDS ASSESSMENT: The learning needs assessment revealed no barriers. SKIN INTEGRITY ASSESSMENT: Skin integrity risk assessment completed. No skin integrity risk identified. --10:10 Shelbie Adan R.N. PROBLEMS: Chest Pain of GI Origin. Vomiting. Abrasion(s). Hemoptysis. Contusion. Substance Abuse. Chest Wall Pain. Otitis Externa. Otitis Media. Back Pain. Muscle Spasm. Myofascial Strain. Cardiovascular Risk Factors. Costochondritis. Atypical Chest Pain. Pelvic Pain. Anal Fissure. Hematuria. Constipation. Abdominal Pain. Dental Caries. Dyspnea. Bronchitis. Ovarian Cyst. Anxiety Reaction. Fall. Sprain. Gastroenteritis. Tension-Type Headache. --10:09 Shelbie Adan R.N. Pelvic Inflammatory Disease [RuleOut]. Irritable Bowel Syndrome [RuleOut]. --10:09 Shelbie Adan R.N. ADDITIONAL SURGERIES: Dilatation & Curettage. Hysterectomy. Tubal Ligation. --10:09 Shelbie Adan R.N. Interventions ID band on patient. To room. --10:10 Shelbie Adan R.N. PHYSICAL ASSESSMENT Ambulatory to room. Patient gowned. GENERAL / NEURO / PSYCH: Oriented X 4. Alert. Appears in no acute distress. EXTREMITIES: Limited ROM present. Pain with weight bearing. Left hip. Left thigh. Left knee. Left leg: tenderness. Left ankle: tenderness. SKIN: Skin intact. Skin is warm and dry. --10:11 Shelbie Adan R.N. NURSING PROGRESS NOTES Cold pack applied. Extremity elevated. Patient gowned. Two patient identifiers checked. Call light placed in reach. Side rails up x 2. Bed placed in lowest position. Brakes of bed on. Patient ready for evaluation. --10:11 Shelbie Adan R.N. 10:44 01/27/2017 Toradol (Ketorolac Tromethamine) IM 60 mg given. Given in the left gluteus kel. Allergies verified and confirmed 5 rights. --10:44 Shelbie Adan R.N. 11:16 01/27/17. Patient returned from radiology by stretcher with tech. --11:16 Isela Plunkett R.N. DISPOSITION / DISCHARGE 11:50. Condition at departure: improved. No learning barriers present. Discharge instructions provided and reviewed with the patient. Reviewed medication(s) side effects, precautions, dosing and course information. Prescription(s) given to the patient. Patient verbalized understanding. Written instructions provided in Greek. The patient was discharged home. She left the Emergency Department ambulatory and via private vehicle. Patient driving. Medication list reviewed and validated. --12:31 Shelbie Adan R.N. 11:50 01/27/17. BP: 112/52. HR: 72. RR: 18. O2 saturation: 100%. Temp: deferred. Pain level now: 12/14. 10:05 01/27/17. BP: 115/76. HR: 82. RR: 20. O2 saturation: 100%. Temp: 98.9 F. Pain level now: 04/15. Additional comments: 06/16 when walking . --12:31 Shelbie Adan R.N. Locked/Released at 01/27/2017 12:32 by Shelbie Adan R.N.
--- NOTE | 2017-01-27 11:41 | ED NURSING NOTES ---
Clinical Report - Nurses [facility] [address] [place] [address] 01/27/2017 9:54 Patient: KARYN AVALOS TRIAGE Triage time 10:03. Acuity: LEVEL 4. Chief Complaint: INJURY TO THE LEFT HIP, LEFT THIGH, LEFT LEG and LEFT ANKLE. Alert. No acute distress. HANNAH COMA SCORE: [place] Coma Scale: 15- eyes open spontaneously (4); best verbal response- oriented x 4 (5); best motor response- obeys commands (6). --10:10 Shelbie Adan R.N. 10:05 01/27/17. BP: 115/76. HR: 82. RR: 20. O2 saturation: 100%. Temp: 98.9 F. Pain level now: 04/15. Additional comments: 06/16 when walking . --10:10 Shelbie Adan R.N. Weight: 68 kg stated. Height/Length: 63 inches Per Patient. BMI: 26.6. --10:07 Shelbie Adan R.N. Medications None. --10:07 Shelbie Adan R.N. Allergies PCN. --10:07 Shelbie Adan R.N. Vicodin.(itching, rash) --10:08 Shelbie Adan R.N. Medication/allergy information source: the patient. --10:10 Shelbie Adan R.N. History Arrived by private vehicle. Historian: patient. Primary physician (chc). ( drove self). [place]. Mechanism of injury: fell (On cardoza and landed on rock, and logs, twisted.). She has had trouble walking. The patient has been limping when trying to walk. 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 PAST MEDICAL HX: Tetanus status: unknown. The patient has had a hysterectomy. SOCIAL HX: Heavy tobacco smoker- less than 1 pack per day. Does not smoke cigarettes. History of drug use: marijuana. Recently used drugs days ago. No alcohol use. FALL RISK ASSESSMENT: Fall risk assessment completed. No fall risk identified. NUTRITIONAL RISK ASSESSMENT: The nutritional risk assessment revealed no deficiencies. FUNCTIONAL ASSESSMENT: Functional assessment: no impairments noted. LEARNING NEEDS ASSESSMENT: The learning needs assessment revealed no barriers. SKIN INTEGRITY ASSESSMENT: Skin integrity risk assessment completed. No skin integrity risk identified. --10:10 Shelbie Adan R.N. PROBLEMS: Chest Pain of GI Origin. Vomiting. Abrasion(s). Hemoptysis. Contusion. Substance Abuse. Chest Wall Pain. Otitis Externa. Otitis Media. Back Pain. Muscle Spasm. Myofascial Strain. Cardiovascular Risk Factors. Costochondritis. Atypical Chest Pain. Pelvic Pain. Anal Fissure. Hematuria. Constipation. Abdominal Pain. Dental Caries. Dyspnea. Bronchitis. Ovarian Cyst. Anxiety Reaction. Fall. Sprain. Gastroenteritis. Tension-Type Headache. --10:09 Shelbie Adan R.N. Pelvic Inflammatory Disease [RuleOut]. Irritable Bowel Syndrome [RuleOut]. --10:09 Shelbie Adan R.N. ADDITIONAL SURGERIES: Dilatation & Curettage. Hysterectomy. Tubal Ligation. --10:09 Shelbie Adan R.N. Interventions ID band on patient. To room. --10:10 Shelbie Adan R.N. PHYSICAL ASSESSMENT Ambulatory to room. Patient gowned. GENERAL / NEURO / PSYCH: Oriented X 4. Alert. Appears in no acute distress. EXTREMITIES: Limited ROM present. Pain with weight bearing. Left hip. Left thigh. Left knee. Left leg: tenderness. Left ankle: tenderness. SKIN: Skin intact. Skin is warm and dry. --10:11 Shelbie Adan R.N. NURSING PROGRESS NOTES Cold pack applied. Extremity elevated. Patient gowned. Two patient identifiers checked. Call light placed in reach. Side rails up x 2. Bed placed in lowest position. Brakes of bed on. Patient ready for evaluation. --10:11 Shelbie Adan R.N. 10:44 01/27/2017 Toradol (Ketorolac Tromethamine) IM 60 mg given. Given in the left gluteus kel. Allergies verified and confirmed 5 rights. --10:44 Shelbie Adan R.N. 11:16 01/27/17. Patient returned from radiology by stretcher with tech. --11:16 Isela Plunkett R.N. DISPOSITION / DISCHARGE 11:50. Condition at departure: improved. No learning barriers present. Discharge instructions provided and reviewed with the patient. Reviewed medication(s) side effects, precautions, dosing and course information. Prescription(s) given to the patient. Patient verbalized understanding. Written instructions provided in Bel[place]ian. The patient was discharged home. She left the Emergency Department ambulatory and via private vehicle. Patient driving. Medication list reviewed and validated. --12:31 Shelbie Adan R.N. 11:50 01/27/17. BP: 112/52. HR: 72. RR: 18. O2 saturation: 100%. Temp: deferred. Pain level now: 12/14. 10:05 01/27/17. BP: 115/76. HR: 82. RR: 20. O2 saturation: 100%. Temp: 98.9 F. Pain level now: 04/15. Additional comments: 06/16 when walking . --12:31 Shelbie Adan R.N. Locked/Released at 01/27/2017 12:32 by Shelbie Adan R.N.
--- NOTE | 2017-01-27 12:32 | ED DISCHARGE INSTRUCTIONS ---
Patient: KARYN AVALOS General Instructions [facility] VisitID: [id number] [address] [place] [address] 32y, F Registration Date/Time: 01/27/2017 Multiple contusions with soft tissue hematoma to the left hip, left thigh, left knee and left lower leg. Traumatic bursitis of the left hip. INSTRUCTIONS Apply ice for 20 minutes four times a day until better. Don't apply ice directly to skin. Your Current Medications: CONTINUE TAKING THE FOLLOWING MEDICATIONS: None*. Prescription Medications: Diclofenac 50 mg tablets: take 1 tablet orally every 8 hours as needed for pain or stiffness. Dispense thirty (30). No refill. Follow-up: Follow up with your doctor in about two days. Call for an appointment. Screening today revealed the patient's blood pressure to be in the normal range. ADDITIONAL INFORMATION Scalp Contusion [W/ Wake-Up] A scalp contusion is a bruise with swelling. Sometimes there is bleeding under the skin. The swelling should start to go down within two days. Although there is no sign of a serious injury at this time, symptoms may show up later. These could be a sign of a more serious problem (bruising or bleeding in the brain). Home Care: During the next 24 hours someone must stay with you. This person should WAKE YOU EVERY TWO HOURS to check for the signs below. If you have swelling of the face or scalp, apply an ice pack (ice cubes in a plastic bag, wrapped in a towel). Do this for 20 minutes every 1-2 hours until the swelling starts to go down. You may use acetaminophen (Tylenol) or ibuprofen (Motrin, Advil) to control pain, unless another pain medicine was prescribed. [ NOTE : If you have chronic liver or kidney disease or ever had a stomach ulcer or GI bleeding, talk with your doctor before using these medicines.] For the next 24 hours: Do not take alcohol, sedatives or medicines that make you sleepy. Do not drive or operate machinery. Avoid strenuous activities. No lifting or straining. If you have had any symptoms of a concussion today (nausea, vomiting, dizziness, confusion, headache, memory loss or if you were knocked out), do not return to sports or any activity that could result in another head injury until all symptoms are gone and you have been cleared by your doctor. A second head injury before fully recovering from the first one can lead to serious brain injury. Follow Up with your doctor if symptoms are not improving after 24 hours, or as directed. [NOTE: Any X-rays or CT scans taken will be reviewed by a radiologist. You will be notified of any new findings that may affect your care.] Get Prompt Medical Attention if any of the following occur: Repeated vomiting Severe or worsening headache or dizziness Unusual drowsiness, or unable to awaken as usual Confusion or change in behavior or speech, memory loss, blurred vision Convulsion (seizure) Increasing scalp or face swelling Redness, warmth or pus from the swollen area Fluid drainage or bleeding from the nose or ears Fever of 100.4F(38C) or higher, or as directed by your healthcare provider Bursitis The larger joints of the body are surrounded bybursa. These are small, flat fluid-filled sacs which help the gliding motion of the muscles and tendons over the joints. Bursitis is an inflammation of the bursa due to injury, overuse of the joint, or infection of the bursa itself. Symptoms include pain and tenderness over a joint that is made worse with movement. Bursitis is treated with an anti-inflammatory medicine and by resting the joint. More severe cases require injection of medicine directly into the bursa. Home Care: Apply an ice pack (ice cubes in a plastic bag, wrapped in a towel) over the injured area for 20 minutes every 1-2 hours the first day. Continue this 3-4 times a day until the pain and swelling improves. Rest the painful joint and protect it from movement. This will allow the inflammation to heal faster. You may take ibuprofen (Motrin, Advil) or naproxen (Aleve, Naprosyn) to treat pain and inflammation, unless another medicine was prescribed. If you can't take these medicines, acetaminophen (Tylenol) may help with the pain, but does not treat inflammation. [NOTE: If you have chronic liver or kidney disease or ever had a stomach ulcer or GI bleeding, talk with your doctor before using these medicines.] As your symptoms improve, begin gradual motion at the joint. Do not overuse the joint, which may cause the symptoms to flare up again. Follow Up With Your Doctor If Not Improving After Three Days Of Treatment. Get Prompt Medical Attention If Any Of The Following Occur: Redness over the painful area Increasing pain or swelling at the joint Fever of 100.4F (38C) or higher, or as directed by your healthcare provider You have been given the following additional information: Scalp Contusion With Wake Up Bursitis (Electronically signed by Nigel Cordero Dr. 01/27/2017 11:43)
--- NOTE | 2017-01-27 12:32 | ED MED RECONCILIATION SUMMARY ---
Patient: KARYN AVALOS Medication Reconciliation Report [facility] VisitID: [id number] [address] [place] [address] 32y, F Registration Date/Time: 01/27/2017 Weight: 68.0 kg Height/Length: 63 in. BMI: 26.6 ALLERGIES: PCN, Vicodin The patient's Home Medications are listed below: NONE. The source(s) of the original Home Medication information: patient The following Medications were given to the patient in the Emergency Department: Toradol [IM] IM 60 mg, administered: 01/27/2017 10:44:00 AM The following Medications were prescribed to the patient: Diclofenac 50 mg tablets: take 1 tablet orally every 8 hours as needed for pain or stiffness. Dispense thirty (30). No refill. -- Nigel Cordero Dr.
--- NOTE | 2017-01-27 12:32 | ED MAR SUMMARY ---
..... Medication Administration Record [facility] [address] [place] [address] Patient: KARYN AVALOS Visit ID: [id number] 32y, F Weight: 68.0 kg Height/Length: 63 in BMI: 26.6 ALLERGIES: Vicodin, PCN Given 10:44 01/27/2017 Shelbie Adan R.N. Medication Administered: TORADOL [IM] (KETOROLAC TROMETHAMINE), Dose: 60 mg IM. Medication Ordered: Toradol IM 60 mg (NOW).
--- NOTE | 2017-01-27 12:32 | ED MAR SUMMARY ---
..... Medication Administration Record [facility] [address] [place] [address] Patient: KAYRN AVALOS Visit ID: [id number] 32y, F Weight: 68.0 kg Height/Length: 63 in BMI: 26.6 ALLERGIES: Vicodin, PCN Given 10:44 01/27/2017 Shelbie Adan R.N. Medication Administered: TORADOL [IM] (KETOROLAC TROMETHAMINE), Dose: 60 mg IM. Medication Ordered: Toradol IM 60 mg (NOW).
--- NOTE | 2017-01-27 12:32 | ED MED RECONCILIATION SUMMARY ---
Patient: KARYN AVALOS Medication Reconciliation Report [facility] VisitID: [id number] [address] [place] [address] 32y, F Registration Date/Time: 01/27/2017 Weight: 68.0 kg Height/Length: 63 in. BMI: 26.6 ALLERGIES: PCN, Vicodin The patient's Home Medications are listed below: NONE. The source(s) of the original Home Medication information: patient The following Medications were given to the patient in the Emergency Department: Toradol [IM] IM 60 mg, administered: 01/27/2017 10:44:00 AM The following Medications were prescribed to the patient: Diclofenac 50 mg tablets: take 1 tablet orally every 8 hours as needed for pain or stiffness. Dispense thirty (30). No refill. -- Nigel Cordero Dr.
== END 2017-01-27 11:50 | disposition home or self-care (01) ==
LOC: ED SRH 09:53
DX: S70.02XA Contusion of left hip, initial encounter (principal); S80.02XA Contusion of left knee, initial encounter; S70.12XA Contusion of left thigh, initial encounter; W01.0XXA Fall on same level from slipping, tripping and stumbling without subsequent striking against object, initial encounter; Y93.01 Activity, walking, marching and hiking; Y92.830 Public park as the place of occurrence of the external cause; Y99.9 Unspecified external cause status; F17.210 Nicotine dependence, cigarettes, uncomplicated; Z88.5 Allergy status to narcotic agent; Z88.0 Allergy status to penicillin